=== PATIENT | male | born 1995 | race Caucasian/White ===

== ENCOUNTER 2020-01-15 14:44 | Emergency (ER) | payer OTHER, SELFPAY ==
[2020-01-15 14:51] VITALS: BP 134/69; PULSE 129; RESP 16; TEMP 36.9; O2SAT 100; BMI 22.8
[2020-01-15 15:09] VITALS: BP 160/64; PULSE 115; RESP 21; O2SAT 100
--- NOTE | 2020-01-15 15:36 | XRR_ITS ---
PROCEDURE INFORMATION: Exam: XR Chest, 1 View Exam date and time: 01/15/2020 3:37 PM Age: 24 years old Clinical indication: Other: Seizure TECHNIQUE: Imaging protocol: XR of the chest Views: 1 view. COMPARISON: CR Chest 1 [place] [id number] 03/13/2016 8:16 PM FINDINGS: Lungs: Unremarkable. No consolidation. Pleural space: Unremarkable. No pleural effusion. No pneumothorax. Heart/Mediastinum: Unremarkable. No cardiomegaly. Bones/joints: Unremarkable. XR/XR chest 1V portable [id number] IMPRESSION: No acute findings.
[2020-01-15 16:08] LABS: Basophils # 0.1 10^3/uL (0.0-0.1); Basophils % 0.7 %; Eosinophils # 0.3 10^3/uL (0.0-0.8); Eosinophils % 2.3 %; Hematocrit 48.2 % (42.0-52.0); Hemoglobin 14.8 g/dL (11.7-16.6); Lymphocytes % 46.9 %; Mean Corpuscular HGB Conc 30.7 g/dL (30.0-36.0); Mean Corpuscular Volume 97.8 fL (80-94); Mean Platelet Volume 10.1 fL (7.4-10.4); Monocytes # 0.7 10^3/uL (0.2-0.9); Monocytes % 5.8 %; Neutrophils # 5.67 10^3/uL (1.8-7.7); Neutrophils % 44.1 %; Nucleated Red Blood Cells % 0 %; Platelet Count 380 10^3/cmm (130-400); Red Blood Count 4.93 10^6/uL (4.1-5.3); Red Cell Distribution Width 13.2 % (12.1-15.1); White Blood Count 12.8 10^3/uL (4.0-10.0)
[2020-01-15 16:31] LABS: Alanine Aminotransferase 41 U/L (0-41); Albumin Level 5.4 g/dL (3.5-5.2); Alkaline Phosphatase 70 IU/L (40-130); Anion Gap 36.5 (5-19); Aspartate Amino Transferase 41 U/L (0-40); Blood Urea Nitrogen 15 mg/dL (6-20); C Reactive Protein 0.3 mg/L (0.0-4.9); Calcium 10.2 mg/dL (8.5-10.5); Carbon Dioxide 13 mmol/L (22-29); Chloride 96 mmol/L (98-107); Globulin 3.1 g/dL (1.3-4.6); Glomerular Filtration Rate 63.4 mL/min (90-130); Glucose 138 mg/dL (65-115); Lipase 42 U/L (13-60); Osmolality Calculated 297 mOsm/kg (285-295); Potassium 3.5 mmol/L (3.5-5.1); Sodium 142 mmol/L (136-145); Thyroid Stimulating Hormone 0.87 uIU/mL (0.27-4.20); Total Bilirubin 0.2 mg/dL (0.15-1.2); Total Protein 8.5 g/dL (6.6-8.7)
[2020-01-15 16:40] LABS: Alcohol Level < 10 mg/dL (0-10)
[2020-01-15 16:41] LABS: Creatine Phosphokinase 975 U/L (39-308)
[2020-01-15 16:50] LABS: Slide Review Slide Review Perform
[2020-01-15 17:15] VITALS: BP 100/63; PULSE 87; RESP 18; O2SAT 99
[2020-01-15] MEDS: sodium chloride 0.9% 1,000 ML 999 ML IV (17:18)
[2020-01-15 17:36] LABS: Urine Appearance Clear (CLEAR); Urine Color Yellow (Yellow); pH Urine 7 (5-7)
[2020-01-15 17:37] LABS: Add Urine Microscopic? YES; Bilirubin Urine Neg (Negative); Blood Urine Neg (Negative); Glucose Urine UA Norm (Normal); Ketones Urine 1+ (Negative); Leukocyte Esterase Urine Negative (Negative); Nitrate Urine Negative (Negative); Protein Urine Trace (Negative); Urobilinogen Urine Norm (Negative)
[2020-01-15 17:44] LABS: Amphetamines Screen Urine Negative (Negative); Barbiturates Screen Urine Negative (Negative); Benzodiazepines Screen Urine Negative (Negative); Cocaine Screen Urine Negative (Negative); Opiate Screen Urine Negative (Negative); PCP Screen Urine Negative (Negative); THC Screen Urine Negative (Negative)
[2020-01-15 17:49] LABS: Lactate (Lactic Acid level) 1.2 mmol/L (0.5-2.2)
[2020-01-15 17:55] LABS: Hyaline Casts Urine 0-4 /lpf; Mucus Urine TRACE /hpf
[2020-01-15 17:56] LABS: Add Urine Culture? No
[2020-01-15 18:19] VITALS: BP 120/67; PULSE 80; RESP 20; O2SAT 99
[2020-01-15 18:32] LABS: ABG PCO2 38.9 mmHg (35-45); Base Excess ABG -0.4 mmol/L (-2.0-2.0); Blood Gas Allen Test Pos; Blood Gas Operator Identificat ED; Blood Gas Sample Site Radial, right; Blood Gas Sample Type Arterial; HCO3 ABG 24.3 mmol/L (22-26); Oxygen Device ROOM AIR; PO2 ABG 80.9 mmHg (80.0-100.0)
[2020-01-15 18:55] VITALS: BP 117/65; PULSE 87; RESP 19; O2SAT 100
--- NOTE | 2020-01-15 19:15 | ED_ITS ---
HPI - Seizure General: Chief Complaint: Seizure Stated Complaint: Seizure Activity Time Seen by Provider: 01/15/20 14:49 Source: patient Mode of arrival: EMS Limitations: no limitations History of Present Illness: HPI Narrative: The patient is a 24-year-old male with a history of seizures who has not been compliant with his antiseizure medication. He says he was prescribed antiepileptic medications many years ago but has not been taking the medications. Today he says he had a seizure. His friend noted that he had the seizure and lasted about 45 seconds and he became post ictal after the seizure. He denies any illness prior to the seizure, no fever recently, no cough, no chest pain, no difficulty breathing. Later during his visit he admitted to taking creatinine and other supplements for working out. MD complaint: seizure Description of Episode: tonic-clonic movement Duration of episode: 45 -: second(s) Witnessed: Yes - by Bystander (friend) Trauma: No Seizure History: Yes Place: Home Associated symptoms: Deny chest pain, chills, confusion, cough, diaphoresis, fever(s), anorexia, malaise, rash, short of breath, syncope or weakness Treatments prior to arrival: none Review of Systems General: Reports: 10 or more systems reviewed and unremarkable except in HPI and below Const: Denies: fever(s), chills, malaise or diaphoresis Eyes: Denies: change in vision or blurry vision ENMT: Denies: throat pain, enlarged tonsils, odynophagia, hoarseness, mouth pain or swelling of lips/tongue Card: Denies: chest pain or syncope Resp: Denies: dyspnea, productive cough or non-productive cough GI: Denies: abdominal pain, nausea or vomiting : Denies: flank pain, dysuria, urinary frequency, urinary urgency or urinary hesitancy Musc: Denies: neck pain, back pain or extremity swelling Skin/Breast: Denies: rash, pruritus or erythema Neuro: Denies: confusion Endo: Denies: polyuria, polydipsia or tired all the time PFSH ED PFSH: Social History Smoking and tobacco status: current every day smoker smokeless tobacco Physical Exam Const: COMMON NORMALS: no acute distress, average body habitus, patient oriented x3, no limitations, healthy appearing, alert and well nourished HENMT: COMMON NORMALS: normocephalic, atraumatic and moist oral mucous membranes HEAD & SCALP: normocephalic and atraumatic Eye: COMMON NORMALS: Equal, round and reactive pupils present, EOMs intact bilaterally, conjunctivae normal and no scleral icterus CONJUNCTIVA: Yes conjunctivae normal PUPIL: Yes Equal, round and reactive pupils present Neck/C-Spine: COMMON NORMALS: full ROM, supple, no meningeal signs, no JVD and No carotid bruits Resp: COMMON NORMALS: normal respiratory effort, No retractions, No use of accessory muscles, clear to auscultation bilaterally and percussion normal AUSCULTATION: clear to auscultation bilaterally PERCUSSION: percussion normal Cardio: COMMON NORMALS: no JVD, regular rhythm, S1 normal heart sound present, S2 normal heart sound present, No gallops present (Cardio), No clicks present (Cardio), No murmurs present (Cardio), No rub (Cardio) and Peripheral pulses 2+ throughout RATE: tachycardic RHYTHM: regular rhythm HEART SOUNDS: S1 normal heart sound present and S2 normal heart sound present PERIPHERAL PULSES: Peripheral pulses 2+ throughout GI: COMMON NORMALS: Normal to inspection, nondistended, normoactive bowel sounds present, Soft to palpation, non-tender, No hepatosplenomegaly present, no masses and no bruits PALPATION: Yes Soft to palpation and Yes No hepatosplenomegaly present Extremity: COMMON NORMALS: normal to inspection, full ROM, capillary refill normal, no calf tenderness and no pedal edema Neuro: COMMON NORMALS: patient oriented x3 SENSORIUM/ORIENTATION: Yes alert MENINGEAL SIGNS: Yes no meningeal signs Skin: COMMON NORMALS: no rashes or lesions noted, no wounds, turgor normal, no jaundice, no petechiae and no mottling GENERAL SKIN EXAM: no rashes or lesions noted and turgor normal Course Reevaluation(s): Reevaluation #1: Discussed his lab and imaging findings with him. Negative for acute findings. Days here now and she said that he has never been on antiepileptics because they did not want him to take it. They feel that if he takes the medication he can get into the and there is some minor restrictions on him so he has never started the medication. Mother wants him to stop the creatinine and other supplements that he is taking on watch to see if he does not get any more seizures. Advised that he will probably benefit from antiepileptics, however if he continues to have seizures he will definitely need antiepileptics. They voiced understanding and are in agreement with the plan. Time: 19:30 Vital Signs: Vital signs: Vital Signs Temperature 98.4 F 01/15/20 14:51 Pulse Rate 90 01/15/20 19:44 Respiratory Rate 19 H 01/15/20 18:55 Blood Pressure 113/65 01/15/20 19:44 Pulse Oximetry 97 01/15/20 19:44 MDM - Seizure MDM Narrative: Medical decision making narrative: 24-year-old male with a prior history of seizures presents to the emergency department following a seizure today. The patient has apparently never started his antiepileptic that he had been prescribed in the past because he is worried about the consequences of being on antiepileptics. He has been taking supplements that he is using for working out and the patient and his mother believe that this may be responsible for his seizure today. He will stop taking the supplements and see if he does not have any more seizures. One of the supplements include creatinine. His heart rate came back down to normal prior to discharge. He is discharged home with no new orders but advised to start antiepileptics if he has recurrent seizures. Differential Diagnosis: Seizure Differential Diagnosis: Likely intractable seizure disorder, generalized seizure, epileptic seizure and status epilepticus Medical Records: Attestation: I reviewed the patient's medical records. Lab Data: Attestation: I reviewed the patient's lab results. Labs: Lab Results 01/15/20 01/15/20 01/15/20 Range/Units 14:55 14:55 16:30 WBC 12.8 H (4.0-10.0) 10^3/ uL RBC 4.93 (4.1-5.3) 10^6/u L Hgb 14.8 (11.7-16.6) g/dL Hct 48.2 (42.0-52.0) % MCV 97.8 H (80-94) fL MCH 30.0 (28.0-34.0) pg MCHC 30.7 (30.0-36.0) g/dL RDW 13.2 (12.1-15.1) % Plt Count 380 (130-400) 10^3/c mm MPV 10.1 (7.4-10.4) fL Neut % (Auto) 44.1 % Lymph % (Auto) 46.9 % Cascade % (Auto) 5.8 % Eos % (Auto) 2.3 % Baso % (Auto) 0.7 % Neut # (Auto) 5.67 (1.8-7.7) 10^3/u L Lymph # (Auto) 6.0 H (0.8-4.8) 10^3/u L Cascade # (Auto) 0.7 (0.2-0.9) 10^3/u L Eos # (Auto) 0.3 (0.0-0.8) 10^3/u L Baso # (Auto) 0.1 (0.0-0.1) 10^3/u L Nucleated RBC % (a uto) 0 % Nucleated RBCs # 0.0 /100WBC Specimen Type Sample Site ABG pH (7.35-7.45) ABG pCO2 (35-45) mmHg ABG pO2 (80.0-100.0) mmH g ABG HCO3 (22-26) mmol/L ABG Base Excess (-2.0-2.0) mmol/ L Erasmo Test Hematocrit (42-52) % O2 Delivery Device FiO2 % Solar [employer] System Installer Helper ID Sodium 142 (136-145) mmol/L Potassium 3.5 (3.5-5.1) mmol/L Chloride 96 L (98-107) mmol/L Carbon Dioxide 13 L (22-29) mmol/L Anion Gap 36.5 H (5-19) BUN 15 (6-20) mg/dL Creatinine 1.4 H (0.7-1.2) mg/dL GFR Calculation 63.4 L (90-130) mL/min Glucose 138 H (65-115) mg/dL Calculated Osmolal ity 297 H (285-295) mOsm/k g Lactate (0.5-2.2) mmol/L Calcium 10.2 (8.5-10.5) mg/dL Total Bilirubin 0.2 (0.15-1.2) mg/dL AST 41 H (0-40) U/L ALT 41 (0-41) U/L Alkaline Phosphata se 70 (40-130) IU/L Creatine Kinase 975 H* (39-308) U/L C-Reactive Protein 0.3 (0.0-4.9) mg/L Total Protein 8.5 (6.6-8.7) g/dL Albumin 5.4 H (3.5-5.2) g/dL Globulin 3.1 (1.3-4.6) g/dL Lipase 42 (13-60) U/L TSH 0.87 (0.27-4.20) uIU/ mL Urine Color (Yellow) Urine Appearance (CLEAR) Urine pH (5-7) Ur Specific Gravit y (1.005-1.030) Urine Protein (Negative) Urine Glucose (UA) (Normal) Urine Ketones (Negative) Urine Blood (Negative) Urine Nitrate (Negative) Urine Bilirubin (Negative) Urine Urobilinogen (Negative) mg/dL Ur Leukocyte Niki ase (Negative) Urine RBC (0-2) /hpf Urine WBC (0-5) /hpf Ur Squamous Epith Cells (0-5) /hpf Amorphous Sediment Urine Bacteria (NONE) /hpf Hyaline Casts /lpf Urine Mucus /hpf Urine Opiates Scre en Negative (Negative) ng/mL Ur Barbiturates Sc reen Negative (Negative) ng/mL Ur Phencyclidine S crn Negative (Negative) ng/mL Ur Amphetamines Sc reen Negative (Negative) ng/mL U Benzodiazepines Scrn Negative (Negative) ng/mL Urine Cocaine Scre en Negative (Negative) ng/mL U Marijuana (THC) Screen Negative (Negative) ng/mL Ethyl Alcohol < 10 (0-10) mg/dL 01/15/20 01/15/20 01/15/20 Range/Units 16:30 17:20 18:20 WBC (4.0-10.0) 10^3/ uL RBC (4.1-5.3) 10^6/u L Hgb (11.7-16.6) g/dL Hct (42.0-52.0) % MCV (80-94) fL MCH (28.0-34.0) pg MCHC (30.0-36.0) g/dL RDW (12.1-15.1) % Plt Count (130-400) 10^3/c mm MPV (7.4-10.4) fL Neut % (Auto) % Lymph % (Auto) % Cascade % (Auto) % Eos % (Auto) % Baso % (Auto) % Neut # (Auto) (1.8-7.7) 10^3/u L Lymph # (Auto) (0.8-4.8) 10^3/u L Cascade # (Auto) (0.2-0.9) 10^3/u L Eos # (Auto) (0.0-0.8) 10^3/u L Baso # (Auto) (0.0-0.1) 10^3/u L Nucleated RBC % (a uto) % Nucleated RBCs # /100WBC Specimen Type Arterial Sample Site Radial, right ABG pH 7.40 (7.35-7.45) ABG pCO2 38.9 (35-45) mmHg ABG pO2 80.9 (80.0-100.0) mmH g ABG HCO3 24.3 (22-26) mmol/L ABG Base Excess -0.4 (-2.0-2.0) mmol/ L Erasmo Test Pos Hematocrit 42.0 (42-52) % O2 Delivery Device Room air FiO2 21.0 % Solar [employer] System Installer Helper ID Ed Sodium (136-145) mmol/L Potassium (3.5-5.1) mmol/L Chloride (98-107) mmol/L Carbon Dioxide (22-29) mmol/L Anion Gap (5-19) BUN (6-20) mg/dL Creatinine (0.7-1.2) mg/dL GFR Calculation (90-130) mL/min Glucose (65-115) mg/dL Calculated Osmolal ity (285-295) mOsm/k g Lactate 1.2 (0.5-2.2) mmol/L Calcium (8.5-10.5) mg/dL Total Bilirubin (0.15-1.2) mg/dL AST (0-40) U/L ALT (0-41) U/L Alkaline Phosphata se (40-130) IU/L Creatine Kinase (39-308) U/L C-Reactive Protein (0.0-4.9) mg/L Total Protein (6.6-8.7) g/dL Albumin (3.5-5.2) g/dL Globulin (1.3-4.6) g/dL Lipase (13-60) U/L TSH (0.27-4.20) uIU/ mL Urine Color Yellow (Yellow) Urine Appearance Clear (CLEAR) Urine pH 7 (5-7) Ur Specific Gravit y 1.010 (1.005-1.030) Urine Protein Trace (Negative) Urine Glucose (UA) Norm (Normal) Urine Ketones 1+ H (Negative) Urine Blood Neg (Negative) Urine Nitrate Negative (Negative) Urine Bilirubin Neg (Negative) Urine Urobilinogen Norm (Negative) mg/dL Ur Leukocyte Niki ase Negative (Negative) Urine RBC None (0-2) /hpf Urine WBC None (0-5) /hpf Ur Squamous Epith Cells None (0-5) /hpf Amorphous Sediment Not Reportable Urine Bacteria None (NONE) /hpf Hyaline Casts 0-4 H /lpf Urine Mucus Trace /hpf Urine Opiates Scre en (Negative) ng/mL Ur Barbiturates Sc reen (Negative) ng/mL Ur Phencyclidine S crn (Negative) ng/mL Ur Amphetamines Sc reen (Negative) ng/mL U Benzodiazepines Scrn (Negative) ng/mL Urine Cocaine Scre en (Negative) ng/mL U Marijuana (THC) Screen (Negative) ng/mL Ethyl Alcohol (0-10) mg/dL Imaging Data^: CXR: Attestation: I personally reviewed and interpreted this imaging study as follows: Radiologist's impression: [address] [address] XRay Report Signed Patient: Jeffery Sebastian SUnkurt #: [id number] : 1995Acct#:[id number] Age/Sex: 24 / MADM Date: 01/15/20 Loc: ERRoom/Bed: Attending Dr: Ordering Provider/Ordering MD: Ritu Negron MD, [facility] [place] Date of Service: 01/15/20 Procedure(s): XR chest 1V portable [id number] Accession Number(s): [id number] Report Number: [id number] PROCEDURE INFORMATION: Exam: XR Chest, 1 View Exam date and time: 01/15/2020 3:37 PM Age: 24 years old Clinical indication: Other: Seizure TECHNIQUE: Imaging protocol: XR of the chest Views: 1 view. COMPARISON: CR Chest 1 [place] [id number] 03/13/2016 8:16 PM FINDINGS: Lungs: Unremarkable. No consolidation. Pleural space: Unremarkable. No pleural effusion. No pneumothorax. Heart/Mediastinum: Unremarkable. No cardiomegaly. Bones/joints: Unremarkable. XR/XR chest 1V portable [id number] IMPRESSION: No acute findings. Dictated By:Yesica Orozco MD Signed By:Yesica Orozco MDSigned Date/Time:01/15/201703 DD/ 02 EKG Data^: EKG 1: Attestation: I personally reviewed and interpreted this EKG as follows: EKG interpretation date: 01/15/20 EKG interpretation time: 14:58 Prior EKG tracings: not available for review Interpretation: Sinus tachycardia. Heart rate 129 bpm. Q waves in [address] changes. Discharge Plan Discharge Patient Disposition: Home Clinical Impression: Epileptic seizure Qualifiers: Epilepsy type: unspecified Intractability: not intractable Status epilepticus: without status epilepticus Qualified Code(s): G40.909 - Epilepsy, unspecified, not intractable, without status epilepticus Condition: Stable Prescriptions: Continued cyclobenzaprine 10 mg tablet 10 mg PO BID PRN (Reason: muscle spasm) Qty: 8 RF: 0 naproxen 500 mg tablet 500 mg PO BID Qty: 14 RF: 0 Discharge Orders: Discharge Order (Routine); Ordered 01/15/20 Ordered By: Ritu Negron Referrals: Marcelino Shields MD [Primary Care Provider] - 1-3 days Discharge Diet: Usual diet Discharge Activity: Increase activity as tolerated Patient Instructions: Epilepsy (ED) Activity Restrictions/Additional Instructions: Return for any new or worsening symptoms. Follow-up with your primary care provider within 3 days. If you have another seizure you definitely need to start on the seizure medicines that were initially prescribed to you. He will benefit from stopping the supplements that you are taking as this may be contributing to your seizures. Drink plenty of fluids to keep well-hydrated Coding Level of Care Code ED Metal Dealer for Chg Fwd Exam Comprehensive
[2020-01-15 19:44] VITALS: BP 113/65; PULSE 90; O2SAT 97
== END 2020-01-15 19:44 | disposition home or self-care (01) ==
PROVIDERS: Emergency Provider Family Medicine; PCP Family Medicine
DX: G40.909 Epilepsy, unspecified, not intractable, without status epilepticus (principal); F17.210 Nicotine dependence, cigarettes, uncomplicated
CPT/HCPCS: 12345; 36600; 71045; 80053; 80306; 80307; 81001; 82550; 82803; 83605; 83690; 84443; 85025; 86140; 96360; 99283; J7030

== ENCOUNTER 2021-03-11 01:28 | Emergency (ER) | payer OTHER, SELFPAY ==
[2021-03-11 01:58] VITALS: BP 125/74; PULSE 72; RESP 18; TEMP 36.3; O2SAT 99; BMI 23.6
--- NOTE | 2021-03-11 02:33 | W.ED.PSYCHS ---
Documented by User: DOREEN Arevalo 03/11/21 17:32 HPI - Psych General: Chief Complaint: Psychiatric Symptoms Stated Complaint: SI Time Seen by Provider: 03/11/21 02:03 History of Present Illness: HPI Narrative: Patient is a 25-year-old male comes to the ED with SI. He was brought in by EMS. Patient says he called EMS because he has been out of his meds for approximately 6 days and is having some suicidal thoughts tonight. He also says he has been drinking alcohol the night to make him feel better. Patient takes venlafaxine for his depression and anxiety he says it works well for him. He ran out of his medication. Patient is currently prescribed 1 tab daily of venlafaxine 225 mg ER tablets. he says that he takes double the prescribed dose, which caused him to run out of medication early. Patient reports that this medication helps him a lot with his anxiety and depression. Since being out of medication he ports been more irritable and vela. He reports only having thoughts of SI this weekend because his and child were out of town visiting some family. They just got back into town later tonight and patient says he is not suicidal now that they are back in town. Patient says he does not do well when he is alone, especially when not taking his venlafaxine. Denies any suicidal plan in place. Patient says he does not want to be admitted into the psych unit would like to get a refill on his meds. Denies any HI, auditory or visual hallucinations. Associated symptoms: Reports depression and suicidal ideation; Deny auditory hallucinations, visual hallucinations or delusions Review of Systems Const: Denies: fever(s), chills or fatigue Eyes: Denies: change in vision or eye discomfort ENMT: Denies: throat pain, odynophagia, nasal discharge or nasal congestion Card: Denies: chest pain, palpitations, edema, swelling of feet/ankles, dyspnea on exertion or orthopnea Resp: Denies: dyspnea, productive cough or non-productive cough GI: Denies: abdominal pain, nausea, vomiting, diarrhea, constipation or hematochezia : Denies: flank pain, difficulty urinating, dysuria or hematuria Musc: Denies: neck pain, back pain or extremity swelling Skin/Breast: Denies: rash or new lesions Neuro: Denies: headache(s), numbness in extremities or weakness in extremities Psych: Reports: anxiety, depression, mood swings, irritability and suicidal ideation; Denies: visual hallucinations or auditory hallucinations PFSH ED PFSH: Social History Smoking and tobacco status: current every day smoker smokeless tobacco Physical Exam Const: COMMON NORMALS: patient oriented x3 and alert GENERAL APPEARANCE: cooperative and odor of alcohol detected HENMT: COMMON NORMALS: normocephalic HEAD & SCALP: normocephalic MOUTH: Normal oral and palatal mucosa present THROAT: posterior oropharynx normal and uvula midline Neck/C-Spine: COMMON NORMALS: supple GENERAL: Yes normal visual inspection Resp: COMMON NORMALS: normal respiratory effort, No retractions, No use of accessory muscles and clear to auscultation bilaterally AUSCULTATION: clear to auscultation bilaterally Cardio: COMMON NORMALS: regular rate, regular rhythm, S1 normal heart sound present, S2 normal heart sound present, No gallops present (Cardio), No clicks present (Cardio), No murmurs present (Cardio) and Peripheral pulses 2+ throughout RATE: regular rate RHYTHM: regular rhythm HEART SOUNDS: S1 normal heart sound present and S2 normal heart sound present PERIPHERAL PULSES: Peripheral pulses 2+ throughout GI: COMMON NORMALS: Normal to inspection, nondistended, normoactive bowel sounds present, Soft to palpation, non-tender and no masses PALPATION: Yes Soft to palpation : COMMON NORMALS: Yes no CVA tenderness BLADDER/KIDNEY EXAM: Yes no CVA tenderness Back/Pelvis: COMMON NORMALS: no CVA tenderness Extremity: COMMON NORMALS: normal to inspection Neuro: COMMON NORMALS: patient oriented x3 and moves all extremities SENSORIUM/ORIENTATION: Yes alert Psych: COMMON NORMALS: mental status grossly normal, Normal thought process present and speech normal ATTITUDE: Yes calm ACTIVITY/MOTOR BEHAVIOR: Yes appropriate eye contact SPEECH: Yes normal speech MOOD & AFFECT: Yes tearful THOUGHT PROCESS: Normal thought process present THOUGHT CONTENT: Yes Suicidality present (only when he is alone and family is away.), No Homicidality present, No delusions and No Hallucination(s) present ATTENTION/CONCENTRATION: Yes attention grossly intact and Yes concentration grossly intact MEMORY/COGNITION: Yes memory grossly intact and Yes cognition grossly intact INSIGHT: Fair insight present (Psych) JUDGEMENT: Fair judgement present (Psych) Skin: GENERAL SKIN EXAM: dry skin Course Consultations: Consultation #1: I contacted Dr. Stephens to discuss patient case and how he does not want to be admitted to the ED. Patient seems in fairly clear state of mind and says he is not currently suicidal because family is back in town. Dr. Stephens said he will call back in and do a televisit with patient and then make plan for discharge or admission. Time: 02:51 Vital Signs: Vital signs: Vital Signs Temperature 98.6 F 03/11/21 06:00 Pulse Rate 78 03/11/21 09:12 Respiratory Rate 16 03/11/21 09:12 Blood Pressure 108/50 03/11/21 06:00 Pulse Oximetry 99 03/11/21 09:12 MDM - Psych Lab Data Attestation: I reviewed the patient's lab results. Result diagrams: 03/11/21 03:15 03/11/21 03:15 Labs: Lab Results 03/11/21 03/11/21 03/11/21 02:54 02:54 03:15 WBC 7.3 10^3/uL 10^3/uL (4.0-10.0) RBC 4.53 10^6/uL 10^6/uL (4.1-5.3) Hgb 14.1 g/dL g/dL (11.7-16.6) Hct 40.7 % L % (42.0-52.0) MCV 89.8 fl fl (80-94) MCH 31.1 pg pg (28.0-34.0) MCHC 34.6 g/dL g/dL (30.0-36.0) RDW 12.7 % % (12.1-15.1) Plt Count 245 10^3/cmm 10^3/cmm (130-400) MPV 8.9 fL fL (7.4-10.4) Neut % (Auto) 49.2 % % Lymph % (Auto) 41.5 % % [place] % (Auto) 5.7 % % Eos % (Auto) 2.2 % % Baso % (Auto) 1.0 % % Neut # (Auto) 3.60 10^3/uL 10^3/uL (1.8-7.7) Lymph # (Auto) 3.0 10^3/uL 10^3/uL (0.8-4.8) [place] # (Auto) 0.4 10^3/uL 10^3/uL (0.2-0.9) Eos # (Auto) 0.2 10^3/uL 10^3/uL (0.0-0.8) Baso # (Auto) 0.1 10^3/uL 10^3/uL (0.0-0.1) Nucleated RBC % (auto) 0 % % Nucleated RBCs # 0.0 /100WBC /100WBC Sodium Potassium Chloride Carbon Dioxide Anion Gap BUN Creatinine GFR Calculation Glucose Calculated Osmolality Calcium Total Bilirubin AST ALT Alkaline Phosphatase Total Protein Albumin Globulin Urine Color Straw (Yellow) Urine Appearance Clear (CLEAR) Urine pH 6 (5-7) Ur Specific [place] 1.010 (1.005-1.030) Urine Protein Neg (Negative) Urine Glucose (UA) Norm (Normal) Urine Ketones Negative (Negative) Urine Blood Neg (Negative) Urine Nitrate Negative (Negative) Urine Bilirubin Neg (Negative) Urine Urobilinogen Norm mg/dL mg/dL (Negative) Ur Leukocyte Esterase Negative (Negative) Salicylates Urine Opiates Screen Negative ng/mL ng/mL (Negative) Acetaminophen Ur Barbiturates Screen Negative ng/mL ng/mL (Negative) Ur Phencyclidine Scrn Negative ng/mL ng/mL (Negative) Ur Amphetamines Screen Negative ng/mL ng/mL (Negative) U Benzodiazepines Scrn Negative ng/mL ng/mL (Negative) Urine Cocaine Screen Negative ng/mL ng/mL (Negative) U Marijuana (THC) Screen Positive ng/mL H ng/mL (Negative) Ethyl Alcohol 03/11/21 03:15 WBC RBC Hgb Hct MCV MCH MCHC RDW Plt Count MPV Neut % (Auto) Lymph % (Auto) [place] % (Auto) Eos % (Auto) Baso % (Auto) Neut # (Auto) Lymph # (Auto) [place] # (Auto) Eos # (Auto) Baso # (Auto) Nucleated RBC % (auto) Nucleated RBCs # Sodium 142 mmol/L mmol/L (136-145) Potassium 3.6 mmol/L mmol/L (3.5-5.1) Chloride 106 mmol/L mmol/L (98-107) Carbon Dioxide 21 mmol/L L mmol/L (22-29) Anion Gap 18.6 (5-19) BUN 11 mg/dL mg/dL (6-20) Creatinine 0.7 mg/dL mg/dL (0.7-1.2) GFR Calculation 139.8 mL/min H mL/min (90-130) Glucose 83 mg/dL mg/dL (65-115) Calculated Osmolality 293 mOsm/kg mOsm/kg (285-295) Calcium 9.6 mg/dL mg/dL (8.5-10.5) Total Bilirubin 0.2 mg/dL mg/dL (0.15-1.2) AST 18 U/L U/L (0-40) ALT 13 U/L U/L (0-41) Alkaline Phosphatase 47 IU/L IU/L (40-130) Total Protein 7.0 g/dL g/dL (6.6-8.7) Albumin 4.5 g/dL g/dL (3.5-5.2) Globulin 2.5 g/dL g/dL (1.3-4.6) Urine Color Urine Appearance Urine pH Ur Specific [place] Urine Protein Urine Glucose (UA) Urine Ketones Urine Blood Urine Nitrate Urine Bilirubin Urine Urobilinogen Ur Leukocyte Esterase Salicylates < 0.3 mg/dL L mg/dL (3-10) Urine Opiates Screen Acetaminophen < 5.0 ug/mL L ug/mL (10-30) Ur Barbiturates Screen Ur Phencyclidine Scrn Ur Amphetamines Screen U Benzodiazepines Scrn Urine Cocaine Screen U Marijuana (THC) Screen Ethyl Alcohol 67 mg/dL H mg/dL (0-10) Discharge Plan Discharge Patient Disposition: Home Clinical Impression: Depression Condition: Stable Prescriptions: New Effexor XR 150 mg capsule,extended release 24hr 150 mg PO DAILY Qty: 30 0RF No Action cyclobenzaprine 10 mg tablet 10 mg PO BID PRN (Reason: muscle spasm) Qty: 8 0RF naproxen 500 mg tablet 500 mg PO BID Qty: 14 0RF Discharge Orders: Discharge ED (Routine); Ordered 03/11/21 Ordered By: Carlitos Carmona Referrals: Marcelino Shields MD [Primary Care Provider] - Discharge Diet: Usual diet Discharge Activity: Resume usual activity Patient Instructions: Depression (ED) Activity Restrictions/Additional Instructions: Return immediately to the ER for thoughts or wishes to harm your self or anyone else. market risk manager will make arrangements for you to have follow-up with behavioral health care. Coding Level of Care Code ED Vascular Physician for Chg Fwd Exam Comprehensive Documented by User: Ritesh Haro DO 03/12/21 22:29 HPI - Psych General: Chief Complaint: Psychiatric Symptoms Stated Complaint: SI Time Seen by Provider: 03/11/21 02:03 PFSH ED PFSH: Social History Smoking and tobacco status: current every day smoker smokeless tobacco Course Vital Signs: Vital signs: Vital Signs Temperature 98.6 F 03/11/21 06:00 Pulse Rate 78 03/11/21 09:12 Respiratory Rate 16 03/11/21 09:12 Blood Pressure 108/50 03/11/21 06:00 Pulse Oximetry 99 03/11/21 09:12 MDM - Psych MDM Narrative Medical decision making narrative: Received in checkout from Mr. Travis PA-C. I agree with his history, evaluation, and treatment. Dr. Stephens will call to consult on this patient via telemedicine in a bit. Discharge planning will be completed after his consultation. Lab Data Result diagrams: 03/11/21 03:15 03/11/21 03:15 Labs: Lab Results 03/11/21 03/11/21 03/11/21 02:54 02:54 03:15 WBC 7.3 10^3/uL 10^3/uL (4.0-10.0) RBC 4.53 10^6/uL 10^6/uL (4.1-5.3) Hgb 14.1 g/dL g/dL (11.7-16.6) Hct 40.7 % L % (42.0-52.0) MCV 89.8 fl fl (80-94) MCH 31.1 pg pg (28.0-34.0) MCHC 34.6 g/dL g/dL (30.0-36.0) RDW 12.7 % % (12.1-15.1) Plt Count 245 10^3/cmm 10^3/cmm (130-400) MPV 8.9 fL fL (7.4-10.4) Neut % (Auto) 49.2 % % Lymph % (Auto) 41.5 % % [place] % (Auto) 5.7 % % Eos % (Auto) 2.2 % % Baso % (Auto) 1.0 % % Neut # (Auto) 3.60 10^3/uL 10^3/uL (1.8-7.7) Lymph # (Auto) 3.0 10^3/uL 10^3/uL (0.8-4.8) [place] # (Auto) 0.4 10^3/uL 10^3/uL (0.2-0.9) Eos # (Auto) 0.2 10^3/uL 10^3/uL (0.0-0.8) Baso # (Auto) 0.1 10^3/uL 10^3/uL (0.0-0.1) Nucleated RBC % (auto) 0 % % Nucleated RBCs # 0.0 /100WBC /100WBC Sodium Potassium Chloride Carbon Dioxide Anion Gap BUN Creatinine GFR Calculation Glucose Calculated Osmolality Calcium Total Bilirubin AST ALT Alkaline Phosphatase Total Protein Albumin Globulin Urine Color Straw (Yellow) Urine Appearance Clear (CLEAR) Urine pH 6 (5-7) Ur Specific [place] 1.010 (1.005-1.030) Urine Protein Neg (Negative) Urine Glucose (UA) Norm (Normal) Urine Ketones Negative (Negative) Urine Blood Neg (Negative) Urine Nitrate Negative (Negative) Urine Bilirubin Neg (Negative) Urine Urobilinogen Norm mg/dL mg/dL (Negative) Ur Leukocyte Esterase Negative (Negative) Salicylates Urine Opiates Screen Negative ng/mL ng/mL (Negative) Acetaminophen Ur Barbiturates Screen Negative ng/mL ng/mL (Negative) Ur Phencyclidine Scrn Negative ng/mL ng/mL (Negative) Ur Amphetamines Screen Negative ng/mL ng/mL (Negative) U Benzodiazepines Scrn Negative ng/mL ng/mL (Negative) Urine Cocaine Screen Negative ng/mL ng/mL (Negative) U Marijuana (THC) Screen Positive ng/mL H ng/mL (Negative) Ethyl Alcohol 01/24/22 03:15 WBC RBC Hgb Hct MCV MCH MCHC RDW Plt Count MPV Neut % (Auto) Lymph % (Auto) [place] % (Auto) Eos % (Auto) Baso % (Auto) Neut # (Auto) Lymph # (Auto) [place] # (Auto) Eos # (Auto) Baso # (Auto) Nucleated RBC % (auto) Nucleated RBCs # Sodium 142 mmol/L mmol/L (136-145) Potassium 3.6 mmol/L mmol/L (3.5-5.1) Chloride 106 mmol/L mmol/L (98-107) Carbon Dioxide 21 mmol/L L mmol/L (22-29) Anion Gap 18.6 (5-19) BUN 11 mg/dL mg/dL (6-20) Creatinine 0.7 mg/dL mg/dL (0.7-1.2) GFR Calculation 139.8 mL/min H mL/min (90-130) Glucose 83 mg/dL mg/dL (65-115) Calculated Osmolality 293 mOsm/kg mOsm/kg (285-295) Calcium 9.6 mg/dL mg/dL (8.5-10.5) Total Bilirubin 0.2 mg/dL mg/dL (0.15-1.2) AST 18 U/L U/L (0-40) ALT 13 U/L U/L (0-41) Alkaline Phosphatase 47 IU/L IU/L (40-130) Total Protein 7.0 g/dL g/dL (6.6-8.7) Albumin 4.5 g/dL g/dL (3.5-5.2) Globulin 2.5 g/dL g/dL (1.3-4.6) Urine Color Urine Appearance Urine pH Ur Specific [place] Urine Protein Urine Glucose (UA) Urine Ketones Urine Blood Urine Nitrate Urine Bilirubin Urine Urobilinogen Ur Leukocyte Esterase Salicylates < 0.3 mg/dL L mg/dL (3-10) Urine Opiates Screen Acetaminophen < 5.0 ug/mL L ug/mL (10-30) Ur Barbiturates Screen Ur Phencyclidine Scrn Ur Amphetamines Screen U Benzodiazepines Scrn Urine Cocaine Screen U Marijuana (THC) Screen Ethyl Alcohol 67 mg/dL H mg/dL (0-10) Discharge Plan Discharge Patient Disposition: Home Clinical Impression: Depression Condition: Stable Prescriptions: New Effexor XR 150 mg capsule,extended release 24hr 150 mg PO DAILY Qty: 30 0RF No Action cyclobenzaprine 10 mg tablet 10 mg PO BID PRN (Reason: muscle spasm) Qty: 8 0RF naproxen 500 mg tablet 500 mg PO BID Qty: 14 0RF Discharge Orders: Discharge ED (Routine); Ordered 03/11/21 Ordered By: Carlitos Carmona Referrals: Marcelino Shields MD [Primary Care Provider] - Discharge Diet: Usual diet Discharge Activity: Resume usual activity Patient Instructions: Depression (ED) Activity Restrictions/Additional Instructions: Return immediately to the ER for thoughts or wishes to harm your self or anyone else. market risk manager will make arrangements for you to have follow-up with behavioral health care. Coding Level of Care Code ED Vascular Physician for Chg Fwd Exam Comprehensive Documented by User: Carlitos Carmona DO 03/11/21 08:27 HPI - Psych General: Chief Complaint: Psychiatric Symptoms Stated Complaint: SI Time Seen by Provider: 03/11/21 02:03 [facility] ED PFSH: Social History Smoking and tobacco status: current every day smoker smokeless tobacco Course Vital Signs: Vital signs: Vital Signs Temperature 98.6 F 03/11/21 06:00 Pulse Rate 78 03/11/21 09:12 Respiratory Rate 16 03/11/21 09:12 Blood Pressure 108/50 03/11/21 06:00 Pulse Oximetry 99 03/11/21 09:12 MDM - Psych MDM Narrative Medical decision making narrative: Care assumed a change of shift Dr. Stephens has seen the patient via telemedicine and feels that the patient is able to go home. He recommended that we refill a prescription for Effexor set him up for outpatient follow-up with [facility]. Also discussed with the family prior to discharge if he has any further problems and need to return to the emergency room with him. Lab Data Result diagrams: 03/11/21 03:15 03/11/21 03:15 Labs: Lab Results 03/11/21 03/11/21 03/11/21 02:54 02:54 03:15 WBC 7.3 10^3/uL 10^3/uL (4.0-10.0) RBC 4.53 10^6/uL 10^6/uL (4.1-5.3) Hgb 14.1 g/dL g/dL (11.7-16.6) Hct 40.7 % L % (42.0-52.0) MCV 89.8 fl fl (80-94) MCH 31.1 pg pg (28.0-34.0) MCHC 34.6 g/dL g/dL (30.0-36.0) RDW 12.7 % % (12.1-15.1) Plt Count 245 10^3/cmm 10^3/cmm (130-400) MPV 8.9 fL fL (7.4-10.4) Neut % (Auto) 49.2 % % Lymph % (Auto) 41.5 % % [place] % (Auto) 5.7 % % Eos % (Auto) 2.2 % % Baso % (Auto) 1.0 % % Neut # (Auto) 3.60 10^3/uL 10^3/uL (1.8-7.7) Lymph # (Auto) 3.0 10^3/uL 10^3/uL (0.8-4.8) [place] # (Auto) 0.4 10^3/uL 10^3/uL (0.2-0.9) Eos # (Auto) 0.2 10^3/uL 10^3/uL (0.0-0.8) Baso # (Auto) 0.1 10^3/uL 10^3/uL (0.0-0.1) Nucleated RBC % (auto) 0 % % Nucleated RBCs # 0.0 /100WBC /100WBC Sodium Potassium Chloride Carbon Dioxide Anion Gap BUN Creatinine GFR Calculation Glucose Calculated Osmolality Calcium Total Bilirubin AST ALT Alkaline Phosphatase Total Protein Albumin Globulin Urine Color Straw (Yellow) Urine Appearance Clear (CLEAR) Urine pH 6 (5-7) Ur Specific [place] 1.010 (1.005-1.030) Urine Protein Neg (Negative) Urine Glucose (UA) Norm (Normal) Urine Ketones Negative (Negative) Urine Blood Neg (Negative) Urine Nitrate Negative (Negative) Urine Bilirubin Neg (Negative) Urine Urobilinogen Norm mg/dL mg/dL (Negative) Ur Leukocyte Esterase Negative (Negative) Salicylates Urine Opiates Screen Negative ng/mL ng/mL (Negative) Acetaminophen Ur Barbiturates Screen Negative ng/mL ng/mL (Negative) Ur Phencyclidine Scrn Negative ng/mL ng/mL (Negative) Ur Amphetamines Screen Negative ng/mL ng/mL (Negative) U Benzodiazepines Scrn Negative ng/mL ng/mL (Negative) Urine Cocaine Screen Negative ng/mL ng/mL (Negative) U Marijuana (THC) Screen Positive ng/mL H ng/mL (Negative) Ethyl Alcohol 03/11/21 03:15 WBC RBC Hgb Hct MCV MCH MCHC RDW Plt Count MPV Neut % (Auto) Lymph % (Auto) [place] % (Auto) Eos % (Auto) Baso % (Auto) Neut # (Auto) Lymph # (Auto) [place] # (Auto) Eos # (Auto) Baso # (Auto) Nucleated RBC % (auto) Nucleated RBCs # Sodium 142 mmol/L mmol/L (136-145) Potassium 3.6 mmol/L mmol/L (3.5-5.1) Chloride 106 mmol/L mmol/L (98-107) Carbon Dioxide 21 mmol/L L mmol/L (22-29) Anion Gap 18.6 (5-19) BUN 11 mg/dL mg/dL (6-20) Creatinine 0.7 mg/dL mg/dL (0.7-1.2) GFR Calculation 139.8 mL/min H mL/min (90-130) Glucose 83 mg/dL mg/dL (65-115) Calculated Osmolality 293 mOsm/kg mOsm/kg (285-295) Calcium 9.6 mg/dL mg/dL (8.5-10.5) Total Bilirubin 0.2 mg/dL mg/dL (0.15-1.2) AST 18 U/L U/L (0-40) ALT 13 U/L U/L (0-41) Alkaline Phosphatase 47 IU/L IU/L (40-130) Total Protein 7.0 g/dL g/dL (6.6-8.7) Albumin 4.5 g/dL g/dL (3.5-5.2) Globulin 2.5 g/dL g/dL (1.3-4.6) Urine Color Urine Appearance Urine pH Ur Specific [place] Urine Protein Urine Glucose (UA) Urine Ketones Urine Blood Urine Nitrate Urine Bilirubin Urine Urobilinogen Ur Leukocyte Esterase Salicylates < 0.3 mg/dL L mg/dL (3-10) Urine Opiates Screen Acetaminophen < 5.0 ug/mL L ug/mL (10-30) Ur Barbiturates Screen Ur Phencyclidine Scrn Ur Amphetamines Screen U Benzodiazepines Scrn Urine Cocaine Screen U Marijuana (THC) Screen Ethyl Alcohol 67 mg/dL H mg/dL (0-10) Discharge Plan Discharge Patient Disposition: Home Clinical Impression: Depression Condition: Stable Prescriptions: New Effexor XR 150 mg capsule,extended release 24hr 150 mg PO DAILY Qty: 30 0RF No Action cyclobenzaprine 10 mg tablet 10 mg PO BID PRN (Reason: muscle spasm) Qty: 8 0RF naproxen 500 mg tablet 500 mg PO BID Qty: 14 0RF Discharge Orders: Discharge ED (Routine); Ordered 03/11/21 Ordered By: Carlitos Carmona Referrals: Marcelino Shields MD [Primary Care Provider] - Discharge Diet: Usual diet Discharge Activity: Resume usual activity Patient Instructions: Depression (ED) Activity Restrictions/Additional Instructions: Return immediately to the ER for thoughts or wishes to harm your self or anyone else. market risk manager will make arrangements for you to have follow-up with behavioral health care. Coding Level of Care Code ED Vascular Physician for [place] Fwd Exam Comprehensive
[2021-03-11 02:58] LABS: Add Urine Microscopic? NO; Charge for UA Resulting for Rev
[2021-03-11 03:03] LABS: Bilirubin Urine Neg (Negative); Blood Urine Neg (Negative); Glucose Urine UA Norm (Normal); Ketones Urine Negative (Negative); Leukocyte Esterase Urine Negative (Negative); Nitrate Urine Negative (Negative); Protein Urine Neg (Negative); Urine Appearance Clear (CLEAR); Urine Color Straw (Yellow); Urobilinogen Urine Norm (Negative); pH Urine 6 (5-7)
[2021-03-11 03:12] LABS: Amphetamines Screen Urine Negative (Negative); Barbiturates Screen Urine Negative (Negative); Benzodiazepines Screen Urine Negative (Negative); Cocaine Screen Urine Negative (Negative); Opiate Screen Urine Negative (Negative); PCP Screen Urine Negative (Negative); THC Screen Urine Positive (Negative)
[2021-03-11 03:21] LABS: Basophils # 0.1 10^3/uL (0.0-0.1); Eosinophils # 0.2 10^3/uL (0.0-0.8); Eosinophils % 2.2 %; Hematocrit 40.7 % (42.0-52.0); Hemoglobin 14.1 g/dL (11.7-16.6); Lymphocytes % 41.5 %; Mean Corpuscular HGB Conc 34.6 g/dL (30.0-36.0); Mean Corpuscular Hemoglobin 31.1 pg (28.0-34.0); Mean Corpuscular Volume 89.8 fl (80-94); Mean Platelet Volume 8.9 fL (7.4-10.4); Monocytes # 0.4 10^3/uL (0.2-0.9); Monocytes % 5.7 %; Neutrophils % 49.2 %; Nucleated Red Blood Cells % 0 %; Platelet Count 245 10^3/cmm (130-400); Red Blood Count 4.53 10^6/uL (4.1-5.3); Red Cell Distribution Width 12.7 % (12.1-15.1); White Blood Count 7.3 10^3/uL (4.0-10.0)
[2021-03-11 03:42] LABS: Alanine Aminotransferase 13 U/L (0-41); Albumin Level 4.5 g/dL (3.5-5.2); Alcohol Level 67 mg/dL (0-10); Alkaline Phosphatase 47 IU/L (40-130); Anion Gap 18.6 (5-19); Aspartate Amino Transferase 18 U/L (0-40); Blood Urea Nitrogen 11 mg/dL (6-20); Calcium 9.6 mg/dL (8.5-10.5); Carbon Dioxide 21 mmol/L (22-29); Chloride 106 mmol/L (98-107); Globulin 2.5 g/dL (1.3-4.6); Glomerular Filtration Rate 139.8 mL/min (90-130); Glucose 83 mg/dL (65-115); Osmolality Calculated 293 mOsm/kg (285-295); Potassium 3.6 mmol/L (3.5-5.1); Sodium 142 mmol/L (136-145); Total Bilirubin 0.2 mg/dL (0.15-1.2)
[2021-03-11 03:43] LABS: Acetaminophen < 5.0 ug/mL (10-30); Salicylate < 0.3 mg/dL (3-10)
[2021-03-11 03:51] VITALS: BP 132/78; PULSE 88; RESP 16; O2SAT 97
[2021-03-11 06:00] VITALS: BP 108/50; PULSE 81; RESP 16; TEMP 37; O2SAT 97
[2021-03-11 09:12] VITALS: PULSE 78; RESP 16; O2SAT 99
--- NOTE | 2021-03-12 12:57 | DCPLANNER ---
natural resource manager had message to speak with patient about services at [facility]. natural resource manager called patient, spoke with his mother, gave her the information to get services started at [facility].
== END 2021-03-11 09:11 | disposition home or self-care (01) ==
PROVIDERS: Physician Assistant; Emergency Provider Family Medicine; PCP Family Medicine
DX: F32.A Depression, unspecified (principal); F17.210 Nicotine dependence, cigarettes, uncomplicated
CPT/HCPCS: 80053; 80306; 80307; 81003; 85025; 99284

== ENCOUNTER 2021-10-09 22:51 | Emergency (ER) | payer SELFPAY ==
--- NOTE | 2021-10-09 22:53 | XRR_ITS ---
PROCEDURE INFORMATION: Exam: XR Right Hand Exam date and time: 10/10/2021 12:10 AM Age: 26 years old Clinical indication: Injury or trauma; Fall; Blunt trauma (contusions or hematomas); Hand; Right; Patient HX: Punched a wall. C/O pain with swelling to dorsal surface across meta carpals. TECHNIQUE: Imaging protocol: Radiologic exam of the Right hand. Views: 3 or more views. COMPARISON: No relevant prior studies available. FINDINGS: Bones/joints: Probable 8 mm displaced fracture fragment posterior to the carpal metacarpal junction. Intra-articular fractures involving the bases of the 4th and/or 5th metacarpals. Soft tissues: Soft tissue swelling over the dorsum of the hand. XR/XR hand RT min 3V* [id number] IMPRESSION: 1. Probable 8 mm displaced fracture fragment posterior to the carpal metacarpal junction. 2. Intra-articular fractures involving the bases of the 4th and/or 5th metacarpals. 3. Soft tissue swelling over the dorsum of the hand.
[2021-10-09 23:09] VITALS: BP 144/80; PULSE 85; RESP 18; TEMP 36.7; O2SAT 97; BMI 21.9
--- NOTE | 2021-10-09 23:36 | W.ED.EXTPRO ---
HPI - Extremity Problem General: Chief complaint: Extremity Injury, Upper Stated complaint: right hand injury Time Seen by Provider: 10/09/21 23:08 Source: patient Mode of arrival: ambulatory Limitations: no limitations History of Present Illness: 26-year-old male states he has been frustrated his girlfriend's been very sick during her states he was upset today and punched a wall he has right hand pain from hitting the wall he denies any other injuries he denies any suicidal or homicidal ideations. Associated symptoms: Deny chest pain, fever(s) or rash Review of Systems Const: Denies: fever(s), chills, body aches or change in appetite Eyes: Denies: blurry vision or eye discomfort ENMT: Denies: throat pain or dental pain Card: Denies: chest pain Resp: Denies: dyspnea GI: Denies: abdominal pain, nausea, vomiting or diarrhea : Denies: dysuria Musc: Reports: extremity pain Skin/Breast: Denies: rash Neuro: Denies: headache(s) Psych: Denies: depression Devyn/Lymph: Denies: easy bruising All/Imm: Denies: urticaria PFS ED PFSH: Medical History (Updated 10/10/21 @ 00:20 by Damien Chun MD) No pertinent past medical history Social History Smoking and tobacco status: current every day smoker smokeless tobacco Physical Exam Const: COMMON NORMALS: no acute distress, patient oriented x3 and healthy appearing HENMT: COMMON NORMALS: normocephalic and atraumatic HEAD & SCALP: normocephalic and atraumatic Eye: COMMON NORMALS: Equal, round and reactive pupils present and EOMs intact bilaterally PUPIL: Yes Equal, round and reactive pupils present Neck/C-Spine: COMMON NORMALS: full ROM and supple Chest: COMMONS NORMALS: normal inspection of the chest and normal palpation of entire chest wall Resp: COMMON NORMALS: normal respiratory effort, No retractions, No use of accessory muscles and clear to auscultation bilaterally AUSCULTATION: clear to auscultation bilaterally Cardio: COMMON NORMALS: regular rate, regular rhythm and No murmurs present (Cardio) RATE: regular rate RHYTHM: regular rhythm GI: COMMON NORMALS: Normal to inspection, nondistended, normoactive bowel sounds present, Soft to palpation, non-tender and no masses PALPATION: Yes Soft to palpation Extremity: COMMON NORMALS: full ROM NARRATIVE EXTREMITY EXAM: tenderness over right hand Neuro: COMMON NORMALS: patient oriented x3, moves all extremities and no focal motor deficits Psych: COMMON NORMALS: mental status grossly normal, Normal thought process present and cooperative THOUGHT PROCESS: Normal thought process present Skin: COMMON NORMALS: no rashes or lesions noted and no wounds GENERAL SKIN EXAM: no rashes or lesions noted Course Vital Signs: Vital signs: Vital Signs Temperature 98.0 F 10/09/21 23:09 Pulse Rate 85 10/09/21 23:09 Respiratory Rate 18 10/09/21 23:09 Blood Pressure 144/80 10/09/21 23:09 Pulse Oximetry 97 10/09/21 23:09 Oxygen Delivery Me thod 10/09/21 23:09 MDM - Extremity (Nontraumatic) Medical Decision Making Patient presents here with a hand injury on the x-ray he appears to have a likely triquetral fracture. We will splint have him follow-up with orthopedics he is to return if worsening he understands agrees to plan. Discharge Plan Discharge Patient Disposition: Home Clinical Impression: Triquetral fracture Qualifiers: Encounter type: initial encounter Fracture type: closed Fracture alignment: nondisplaced Laterality: right Qualified Code(s): S62.114A - Nondisplaced fracture of triquetrum [cuneiform] bone, right wrist, initial encounter for closed fracture Condition: Stable Prescriptions: No Action cyclobenzaprine 10 mg tablet 10 mg PO BID PRN (Reason: muscle spasm) Qty: 8 0RF naproxen 500 mg tablet 500 mg PO BID Qty: 14 0RF Effexor XR 150 mg capsule,extended release 24hr 150 mg PO DAILY Qty: 30 0RF Discharge Orders: Discharge ED (Routine); Ordered 10/10/21 Ordered By: Damien Chun Referrals: Marcelino Shields MD [Primary Care Provider] - Jason Robles DO [Physician] - 1-3 days Discharge Diet: Advance as tolerated Discharge Activity: Resume usual activity Patient Instructions: Wrist Fracture in Adults (ED) Coding Level of Care Code ED General Activities Therapist for g Fwd Exam Comprehensive
--- NOTE | 2021-10-10 12:28 | DCPLANNER ---
Addendum entered by Bette Umanzor 10/18/21 12:46: Patient had a follow up appointment scheduled for 10.14.21 with ortho - patient did attend appointment. Original Note: credit administration manager had message to schedule a follow up appointment for patient with ortho. credit administration manager sent patients information to the front office staff at ortho. Patients information will be printed and reviewed. Clinic will call patient with appointment information.
== END 2021-10-10 00:54 | disposition home or self-care (01) ==
PROVIDERS: Emergency Provider Emergency Medicine; PCP Family Medicine
DX: S62.114A Nondisplaced fracture of triquetrum [cuneiform] bone, right wrist, initial encounter for closed fracture (principal); W22.09XA Striking against other stationary object, initial encounter
CPT/HCPCS: 29125; 73130; 96361; 96374; 99283; 99284

== ENCOUNTER → 2021-10-14 09:24 | Outpatient (BNVA) | payer BC, SELFPAY | PROVIDERS: PCP Family Medicine; Referring Provider Emergency Medicine; Visit Provider Student in an Organized Health Care Education/Training Program | DX: S62.394A Other fracture of fourth metacarpal bone, right hand, initial encounter for closed fracture (principal); S62.396A Other fracture of fifth metacarpal bone, right hand, initial encounter for closed fracture; W22.8XXA Striking against or struck by other objects, initial encounter | CPT/HCPCS: 73110 ==

== ENCOUNTER 2021-10-14 10:51 | Outpatient (CLI) | payer BC, SELFPAY | END 2021-10-14 10:52 | disposition home or self-care (01) | LOC: SPT 10:53 | PROVIDERS: PCP Family Medicine; Visit Provider Student in an Organized Health Care Education/Training Program | DX: Z46.89 Encounter for fitting and adjustment of other specified devices (principal); S62.111D Displaced fracture of triquetrum [cuneiform] bone, right wrist, subsequent encounter for fracture with routine healing; X58.XXXD Exposure to other specified factors, subsequent encounter | CPT/HCPCS: 97760; L3984 ==

== ENCOUNTER 2021-10-16 14:07 | Outpatient (CLI) | payer BC, SELFPAY ==
--- NOTE | 2021-10-16 14:00 | CT_ITS ---
WS: [id number] CT RIGHT WRIST, NONCONTRAST, 3-D. HISTORY: TRIQUETRAL FRACTURE Technique: All CT scans at [facility] use at least one of these dose optimization techniques: automated exposure control; mA and/or kV adjustment per patient size (includes targeted exams where dose is matched to clinical indication); or iterative reconstruction. DLP: 100.38 mGy.cm COMPARISON: Wrist radiographs 10/14/2021 Comminuted fracture with displaced fragments involving the proximal fourth metacarpal. There are mult iple bony fragments surrounding the metacarpal. The largest measures 11 mm and is displaced from the volar surface of the proximal metacarpal. Fragments extend intra-articular. There is also posterior subluxation of the metacarpal with respect to the hamate. Posterior subluxation by 7 mm. Additional posterior subluxation of the fifth metacarpal with adjacent small bony fragments. There is probably a small donor site from the medial most aspect of the fifth metacarpal but majority of the fragments are from the hamate. Posterior subluxation with impaction on the hamate. Markedly comminuted hamate. There are multiple osseous fragments with separation by at least 7 mm. This separation of bony fragments is due to impaction and subluxation of the fifth metacarpal. Fifth metacarpal with overriding hamate. The remaining carpal bones appear intact. No additional fractures are identified. There is a large amount of soft tissue edema around the carpal bones. CT/CT wrist RT wo con* [id number] IMPRESSION: 1. Markedly comminuted fractures involving the proximal fourth metacarpal with bony fragments being displaced. There is also posterior subluxation of the fou rth metacarpal by 7 mm. 2. Posterior subluxation of the fifth metacarpal. Very tiny avulsion fracture suspected along the articular surface of the proximal fifth metacarpal. 3. Markedly comminuted hamate fracture with displacement of osseous fragments. Hamate fractures are being displaced by impaction of the fourth and fifth meta carpals. 4. No triquetral fracture appreciated.
== END 2021-10-16 14:08 | disposition home or self-care (01) ==
LOC: RAD 14:08
PROVIDERS: PCP Family Medicine; Visit Provider Student in an Organized Health Care Education/Training Program
DX: S62.113A Displaced fracture of triquetrum [cuneiform] bone, unspecified wrist, initial encounter for closed fracture (principal); S62.304A Unspecified fracture of fourth metacarpal bone, right hand, initial encounter for closed fracture; S62.141A Displaced fracture of body of hamate [unciform] bone, right wrist, initial encounter for closed fracture; X58.XXXA Exposure to other specified factors, initial encounter
CPT/HCPCS: 73200

== ENCOUNTER 2021-10-18 09:53 | Day surgery (SDC) | payer BC, SELFPAY ==
[2021-10-18] VITALS (10 sets, daily range): BP systolic 116–168; BP diastolic 61–95; PULSE 43–72; RESP 14–18; TEMP 36.1–36.6; O2SAT 99–100; BMI 21.9
--- NOTE | 2021-10-18 | SCC_ITS ---
Procedure done: Right hand fourth and fifth carpometacarpal joint fracture dislocation closed reduction and percutaneous pinning 39 seconds of fluoroscopic guidance, for a cumulative dose of 0.84 mGy, was provided to Dr. Robles by the radiology department. C-arm images of the RIGHT wrist were saved for the patient's permanent record. [facility]
--- NOTE | 2021-10-18 10:36 | P.ANESASSM_ITS ---
Pre-Anesthetic Assessment Height/Weight: Height 1.75 m Weight 67.585 kg Temp Pulse Resp BP Pulse Ox O2 Del Method 97.8 F 57 L 18 116/61 99 10/18/21 10:27 10/18/21 10:27 10/18/21 10:27 10/18/21 10:27 10/18/21 10:27 10/18/21 10:27 Preop Diagnosis: Right fourth and fifth carpometacarpal joint fracture dislocation Operation Date: 10/18/21 11:15 Proposed Procedures p RIGHT FOURTH AND FIFTH CARPOMETACARPAL JOINT CLOSED REDUCTION AND PINNING WITH POSSIBLE OPEN REDUCTION 13234, 66962,S62.308A(Right) - Jason Washington, DO Familial anesthetic complications: None Was Beta Nicole taken within 24 hours: N/A Was Clonidine taken within 24 hours: N/A Last intake: Intake Last Liquid Date 10/17/21 Last Liquid Time 22:00 Last Solid Date 10/17/21 Last Solid Time 15:00 Social Alcohol (past abuse - seizures) and Tobacco marijuana this morning Exam alert, oriented x 3, clear to auscultation bilaterally and regular rate & rhythm Airway Mallampati: Class I Dentition: chipped Neuropsych Seizure (on keppra - no seizure in 1.5 years) Anesthetic Plan ASA status: 2 Anesthesia: General Risk of > 500 ml blood loss (7ml/kg in children): No Medications/Allergies Home Medications Medication Instructions Recorded Confirmed Last Taken Type naproxen 500 mg tablet 500 mg PO BID #14 tabs 11/16/19 10/14/21 Unknown Rx FASTFORM ULNAR GUTTER SPLINT #1 ea 10/14/21 10/14/21 Unknown Rx Allergies Allergy/AdvReac Type Severity Reaction Status Date / Time No Known Allergies Allergy Verified 10/14/21 09:30 [facility] Anesthesia Medical History (Updated 10/18/21 @ 00:01 by ) Closed fracture of 4th metacarpal Closed fracture of 5th metacarpal No pertinent past medical history Social History Smoking and tobacco status: current every day smoker smokeless tobacco Data Anesthesia Cardiac Studies: No Data to Display
[2021-10-18] MEDS: sodium chloride 0.9% 1,000 ML 30 ML IV (10:39)
--- NOTE | 2021-10-18 11:50 | W.PM.OPSUD ---
Surgery/Procedure H&P Update DATE OF PROCEDURE: October 18, 2021 DATE H&P PERFORMED: 10/14/21 CHANGES TO PREVIOUS DOCUMENTATION: None PREOP DIAGNOSIS: Right fourth and fifth carpometacarpal joint fracture dislocation PRIMARY INDICATION FOR PROCEDURE: Right fourth and fifth carpometacarpal joint fracture dislocation PLANNED PROCEDURE: Operation Date: 10/18/21 11:15 Proposed Procedures p RIGHT FOURTH AND FIFTH CARPOMETACARPAL JOINT CLOSED REDUCTION AND PINNING WITH POSSIBLE OPEN REDUCTION 27106, 29388,S62.308A(Right) - Jason Robles DO
[2021-10-18] MEDS: ceFAZolin 2,000 MG in sodium chloride 0.9% (plus) 50 ML 100 MG IV (12:00)
[2021-10-18] MEDS: lidocaine 1% INJ 50 mL 7 ML INJECTION (12:40)
--- NOTE | 2021-10-18 12:49 | P.OP_ITS ---
Brief Operative Note Date of procedure: 10/18/21 Pre-op diagnosis: Right hand fracture dislocation fourth and fifth carpometaca rpal joint Post-op diagnosis: same Procedure Done: Right fourth and fifth carpometacarpal fracture dislocation closed reduction and percutaneous pinning Surgeon: Jason Robles Estimated blood loss (mL): 1 Complications: None Post-op Plan: Patient recover in PACU. Discharge home today. Patient receive appropriate discharge instructions as well as pain medication. Will follow-up in the office in 2 weeks. Condition: stable Disposition: same day Coding Level of Care Code Acute Crawler Tractor Operator for Puma Handley
--- NOTE | 2021-10-18 12:51 | PM.PACU ---
PACU note Narrative: Patient recovering PACU in stable condition. Splint on and in place to the right hand. Still sedated from medication unable to follow commands. Fingers are warm well perfused. Brisk capillary refill less than 2 seconds. Exam: vital signs stable (See above for examination) Disposition: discharged
--- NOTE | 2021-10-18 12:52 | PM.OP ---
Operative Report Date of procedure: October 18, 2021 Pre-op diagnosis: Preop Diagnosis Right fourth and fifth carpometacarpal joint fracture dislocation Post-op diagnosis: Right hand fourth and fifth carpometacarpal joint fracture dislocation Right hand hamate fracture Post-op findings: See procedure note for details Procedure done: Right hand fourth and fifth carpometacarpal joint fracture dislocation closed reduction and percutaneous pinning Implants: 2x0.045 K wires Specimens removed/disposition: None Pathology: None Surgeon: Jason Robles DO Estimated blood loss (mL): 1 No tourniquet used IV fluids: See anesthesia note Complications: None Findings: See operative note Condition: stable Disposition: same day Brief History: Patient seen and evaluated earlier this week by myself in the office. Since he initially the emergency department and found to have fracture of the fourth and fifth metacarpal bases. On x-ray imaging difficult to determine reduction and on examination no significant palpable defect was noted. As a result CT scan was ordered for further evaluation to guide treatment plan. On CT scan he was noticed to have the fourth and fifth carpometacarpal joint fracture dislocation as well as hamate fracture. As result contacted patient and discussion with him over the phone about his CT scan results and recommended right hand fourth and fifth carpometacarpal joint fracture dislocation closed reduction and percutaneous pinning. Would recommend nonoperative management for the hamate fracture. This point detail the risk benefits complications alternatives of surgical intervention. Risk include but are not limited to make it better make it worse, infection, wound dehiscence, increased risk of arthritis loss of function a hand injury to nerves or vessels. With understanding risk patient elects to proceed with surgical intervention. All questions answered. Procedure: Patient was seen and evaluated in the preoperative holding area. His consent was reviewed and we discussed plan for surgery with close reduction percutaneous pinning however did discuss there may need to be a open incision if difficult with reduction. Consent was signed. Appropriate extremity was signed. Patient evaluated by anesthesia. Taken to the operative suite on the [facility] entrance referred to the OR table in supine position with arm on the arm table. All bony prominences were well-padded. Patient was appropriately secured. Patient underwent anesthesia per the anesthesia department. Patient received appropriate preoperative antibiotics. Nonsterile tourniquet applied to the right upper extremity arm. Right upper extremity was prepped and draped in standard orthopedic fashion. Final timeout performed. Mini C arm was brought in to evaluate patient's fracture. Patient had noticeable dislocation of the fourth and fifth carpometacarpal joint with an avulsion of the hamate. Close reduction maneuver was performed with longitudinal traction and subsequent translation from a dorsal to palmar force and x-ray was used to confirm appropriate reduction. Next I loaded a 0.045 K wire on a K wire patient transportation driver and this was advanced along the bases of the fourth fifth and third metacarpals. Once this held our reduction I then placed 1 more K wire from the fifth base into the hamate. These were advanced into appropriate position multiple orthogonal images with mini C arm were used to confirm reduction as well as appropriate bony fixation in the metacarpals as well as the hamate. Satisfactory AP external oblique as well as lateral confirmed satisfactory reduction and fixation. This point I then injected 7 cc of lidocaine and 3 cc of ropivacaine for pain control postoperatively around the pin sites and fracture site. The K wires were then bent and left out of the skin and points were covered with Claudy balls. Pin sites were then covered with Xeroform and 4 x 4's and was then placed into a standard ulnar gutter splint with cast padding and fiberglass prefab splint. Splint was then covered with an Amari wrap. Patient was then awakened from anesthesia and taken to PACU in stable condition. Disposition: Patient to maintain splint until follow-up. Elevation is ice as needed. Nonweightbearing right hand. Patient take pain medication as prescribed. Patient received appropriate discharge instructions. Will see patient back in 2 weeks.
[2021-10-18] MEDS: fentaNYL 50 mcg/mL INJ 2mL IVP (13:05)
--- NOTE | 2021-10-18 16:00 | ANE.PACU2 ---
Inpatient post-anesthesia follow up: Airway intact: Yes Vital signs: Temperature 97.0 F Pulse Rate 49 Respiratory Rate 16 Blood Pressure 145/73 Pulse Oximetry 100 Oxygen Delivery Me thod Room Air Oxygen Flow Rate 8 Fraction of Inspir ed Oxygen Hydration adequate: Yes Nausea and vomiting: No Pain level: 2 Mental status: Baseline
== END 2021-10-18 13:58 | disposition home or self-care (01) ==
PROVIDERS: PCP Family Medicine; Visit Provider Student in an Organized Health Care Education/Training Program
PROC: (CPT 26608; principal; 2021-10-18 11:15)
DX: S62.314A Displaced fracture of base of fourth metacarpal bone, right hand, initial encounter for closed fracture (principal); S62.316A Displaced fracture of base of fifth metacarpal bone, right hand, initial encounter for closed fracture; S62.141A Displaced fracture of body of hamate [unciform] bone, right wrist, initial encounter for closed fracture; R56.9 Unspecified convulsions; F17.200 Nicotine dependence, unspecified, uncomplicated; W22.8XXA Striking against or struck by other objects, initial encounter
CPT/HCPCS: 26608 ×2; 76000; C1713; J1100; J1885; J2250; J2405; J2704; J2795; J3010; J7030

== ENCOUNTER → 2021-10-28 09:45 | Outpatient (BNVA) | payer BC, SELFPAY | PROVIDERS: PCP Family Medicine; Visit Provider Student in an Organized Health Care Education/Training Program | DX: S62.304A Unspecified fracture of fourth metacarpal bone, right hand, initial encounter for closed fracture (principal); S62.141A Displaced fracture of body of hamate [unciform] bone, right wrist, initial encounter for closed fracture; S62.306A Unspecified fracture of fifth metacarpal bone, right hand, initial encounter for closed fracture; X58.XXXA Exposure to other specified factors, initial encounter | CPT/HCPCS: 73130 ==

== ENCOUNTER 2021-10-29 06:00 | Outpatient (RCR) | payer BC, SELFPAY | END 2021-11-15 23:59 | disposition home or self-care (01) | LOC: SOT 06:00 | PROVIDERS: PCP Family Medicine; Visit Provider Student in an Organized Health Care Education/Training Program | DX: S62.306S Unspecified fracture of fifth metacarpal bone, right hand, sequela (principal); X58.XXXS Exposure to other specified factors, sequela | CPT/HCPCS: 97165; 97760 ==

== ENCOUNTER → 2021-11-11 09:57 | Outpatient (BNVA) | payer BC, SELFPAY | PROVIDERS: PCP Family Medicine; Visit Provider Student in an Organized Health Care Education/Training Program | DX: S63.051A Subluxation of other carpometacarpal joint of right hand, initial encounter (principal); S62.304A Unspecified fracture of fourth metacarpal bone, right hand, initial encounter for closed fracture; S62.306A Unspecified fracture of fifth metacarpal bone, right hand, initial encounter for closed fracture; S62.141A Displaced fracture of body of hamate [unciform] bone, right wrist, initial encounter for closed fracture; W01.0XXA Fall on same level from slipping, tripping and stumbling without subsequent striking against object, initial encounter | CPT/HCPCS: 73130 ==

== ENCOUNTER 2021-11-13 07:51 | Day surgery (SDC) | payer BC, SELFPAY ==
[2021-11-12 13:12] VITALS: BMI 21.4
[2021-11-13] VITALS (8 sets, daily range): BP systolic 113–138; BP diastolic 55–82; PULSE 59–87; RESP 13–18; TEMP 36.2–36.7; O2SAT 98–100
--- NOTE | 2021-11-13 | XR_ITS ---
WS: [id number] Exam: XR hand RT 2V [id number] Date/Time of Exam: 11/13/2021 12:00 AM Reason For Exam: ORIF right fourth and fifth CMC fracture dislocation AP and lateral views the right hand are submitted for evaluation. Compared to prior study 11/11/2021. 2 additional pins have been placed in the medial aspect of the hand. One pin superimposes the base of the fourth metacarpal and hamate. The second pin lies transversely over the proximal third fourth an d fifth metacarpals. 2 additional pins cross over the region of the third fourth and fifth proximal m etacarpals and the hamate bone.
--- NOTE | 2021-11-13 | SCC_ITS ---
Procedure done: Right hand superficial K wire pins removed x2 Revision open reduction internal fixation right fourth and fifth CMC fracture dislocation 3 minutes, 10 seconds of fluoroscopic guidance, for a cumulative dose of 3.531 mGy, was provided to Dr. Robles by the radiology department. C-arm images of the right hand were saved for the patient's permanent record. [facility]
--- NOTE | 2021-11-13 08:25 | ANES.PREANE2 ---
Pre-Anesthetic Assessment Height/Weight: Height 1.75 m Weight 65.771 kg Temp Pulse Resp BP Pulse Ox O2 Del Method 97.8 F 74 18 126/66 100 11/13/21 08:10 11/13/21 08:10 11/13/21 08:10 11/13/21 08:10 11/13/21 08:10 11/13/21 08:12 Preop Diagnosis: Right fourth carpometacarpal fracture dislocation failed fixation Operation Date: 11/13/21 09:20 Proposed Procedures p REVISION OPEN REDUCTION INTERNAL FIXATION RIGHT FOURTH AND FIFTH CARPOMETACARPAL FRACTURE WITH DISLOCATION 23961,S62.308A,S62.308A,S62.143A(Right) - Jason Robles DO Familial anesthetic complications: none Was Beta Nicole taken within 24 hours: N/A Was Clonidine taken within 24 hours: N/A Last intake: Intake Last Liquid Date 11/12/21 Last Liquid Time 21:00 Last Solid Date 11/12/21 Last Solid Time 15:00 Social Tobacco (vapes) and No alcohol Exam alert, oriented x 3, clear to auscultation bilaterally and regular rate & rhythm Airway Submandibular: within normal limits Cervical ROM: within normal limits Mallampati: Class II Dentition: chipped Anesthetic Plan ASA status: 2 Anesthesia: General Medications/Allergies Home Medications Medication Instructions Recorded Confirmed Last Taken Type FASTFORM ULNAR GUTTER SPLINT #1 ea 10/14/21 11/11/21 Unknown Rx Allergies Allergy/AdvReac Type Severity Reaction Status Date / Time No Known Allergies Allergy Verified 11/11/21 10:07 [facility] Anesthesia Medical History (Updated 11/12/21 @ 21:19 by Jason Robles DO) Closed dislocation of fourth carpometacarpal joint Closed fracture of 4th metacarpal Closed fracture of 5th metacarpal Fx hamate bone-closed No pertinent past medical history Social History Smoking and tobacco status: current every day smoker smokeless tobacco Data Anesthesia Cardiac Studies: No Data to Display
[2021-11-13] MEDS: ketorolac 30 mg/mL INJ IVP (08:35)
[2021-11-13] MEDS: acetaminophen 1,000 MG/100 ML PIGGYBACK 400 MG IV (08:36)
[2021-11-13] MEDS: sodium chloride 0.9% 1,000 ML 30 ML IV (08:37)
--- NOTE | 2021-11-13 09:14 | P.HPUD_ITS ---
Surgery/Procedure H&P Update DATE OF PROCEDURE: November 13, 2021 DATE H&P PERFORMED: 11/11/21 CHANGES TO PREVIOUS DOCUMENTATION: None PREOP DIAGNOSIS: Right fourth carpometacarpal fracture dislocation failed fixation PRIMARY INDICATION FOR PROCEDURE: Failed fixation right fourth CMC joint with recurrent dislocation PLANNED PROCEDURE: Operation Date: 11/13/21 09:20 Proposed Procedures p REVISION OPEN REDUCTION INTERNAL FIXATION RIGHT FOURTH AND FIFTH CARPOMETACARPAL FRACTURE WITH DISLOCATION 03895 ,S62.308A,S62.308A,S62.143A(Right) - Jason Robles DO
[2021-11-13] MEDS: ceFAZolin 2,000 MG in sodium chloride 0.9% (plus) 50 ML 100 MG IV (09:26)
[2021-11-13] MEDS: lidocaine 1% INJ 20 mL XX (09:52)
--- NOTE | 2021-11-13 11:40 | P.OP_ITS ---
Brief Operative Note Date of procedure: 11/14/21 Pre-op diagnosis: Right fourth CMC fracture dislocation Post-op diagnosis: same (Failed fixation with recurrent right fourth CMC fracture dislocation) Procedure Done: Superficial K wire pin removed x2 of prior fixation Open reduction and internal fixation right fourth fifth CMC fracture dislocation Right short arm cast application Interpretation intraoperative mini C arm fluoroscopic imaging Surgeon: Jason Robles Estimated blood loss (mL): 10 Complications: None Post-op Plan: Patient recover in PACU. Placed in a short arm cast. Be nonweightbearing to the right hand. Patient will follow-up with me in office in 2 weeks. Will be given appropriate discharge instructions as well as pain medication postoperatively. Condition: stable Disposition: same day Coding Level of Care Code Acute Surgical Scrub Technologist for Puma Handley
--- NOTE | 2021-11-13 11:45 | PM.PACU ---
PACU note Narrative: Patient seen evaluated in PACU. Patient's fingers are warm well perfused. Compartment soft compressible. Cast on in place clean dry and intact. Patient is able to wiggle fingers. Pain controlled. Sensation intact to light touch of the right hand. Will discharge home later today. Exam: awake (See narrative for detailed) Disposition: discharged
--- NOTE | 2021-11-13 11:49 | P.OP_ITS ---
Operative Report Date of procedure: November 14, 2021 Pre-op diagnosis: Preop Diagnosis Right fourth carpometacarpal fracture dislocation failed fixation Post-op diagnosis: Same Post-op findings: See procedure note for detail Procedure done: Right hand superficial K wire pins removed x2 Revision open reduction internal fixation right fourth and fifth CMC fracture dislocation Short arm cast application right upper extremity Interpretation intraoperative mini C-arm fluoroscopic imaging Implants: 4x0.045 K wires Surgeon: Jason Robles DO Estimated blood loss: 10 54 minutes IV fluids: See anesthesia record Complications: None Findings: See operative note Condition: stable Disposition: same day Brief History: Jeffery is a 26-year-old male who sustained a fourth and fifth CMC fracture dislocation as well as hamate fracture. He is initially seen and evaluated by myself and underwent closed reduction and percutaneous pinning fixation. Initial mini C arm imaging postoperatively showed stable reduction and fixation fourth and fifth CMC. Patient has had issues with compliance as far as taking splint off prematurely and weightbearing activities through his right hand. As a result through sequential imaging does appear to be recurrent dislocation of the fourth CMC joint with loss of fixation. At this point feel he is still close enough that we would be able to reduce this and add and augment new fixation. Given the loss of fixation my recommendation would be for revision open reduction internal fixation fourth CMC joint. We detailed out the risk benefits complications alternatives surgery and through shared decision making patient elects to proceed with surgical intervention. All questions answered at this time. Consent was obtained in the office. Procedure: Patient was seen evaluate in the preoperative holding area. Consent was reviewed with patient and the correct extremity was then marked. He was then evaluated by the preoperative team as well as anesthesia and once cleared for surgery was taken back to the operative suite placed onto the OR table in supine position with an armboard to the right upper extremity. All bony prominences well-padded patient was appropriately secured to the table. Patient underwent anesthesia per the anesthesia department. Received appropriate preoperative antibiotics. Nonsterile tourniquet was applied to the right upper extremity. Right upper extremity was then prepped and draped in standard orthopedic fashion. Esmarch tourniquet was used to exsanguinate the right upper extremity and tourniquet was insufflated to 250 mmHg. Local injection was made around planned dorsal hand incision utilizing 5 cc lidocaine and 5 cc ropivacaine. Mini C arm was then brought in to evaluate the failed fixation and recurrent fracture dislocation of the fourth CMC joint. This point I remove the 2 superficial K wires that were left out of the skin as I felt this would inhibit my reduction. This point I then performed a standard longitudinal incision centering directly over the fourth CMC joint. Sharp scalpel excision through skin and subsequently Littler dissection scissors were used to dissect down to the fourth CMC joint. Care was made to protect the extensor tendons as well as protect any dorsal cutaneous nerve branches. Small perforating vessels were coagulated utilizing bipolar electrocautery to maintain exact hemostasis. I then came down directly over the fourth and fifth CMC joint. Sharp scalpel excision directly centering over the fourth CMC joint the avulsed hamate fracture was in appropriate position and was healing well this was left alone. It was evidence on further dissection that the fourth CMC joint had noticeable dislocation. This had already begun to heal somewhat with some immature callus as a result I did have to take this down to appropriately mobilize the fourth metacarpal base. At this point once I had this mobile I then inspected the joint there was some articular fracture lines noted however overall congruent articular margin was noted. At this point I utilized a [place] to then lever the fourth metacarpal base back into appropriate positioning. While performing this I then placed a K wire from the base of the fourth metacarpal into the hamate to lock my position of the fourth CMC joint. It was evident that the fifth CMC joint appeared to be in appropriate position and no further reduction was needed here. At this point given patient's noncompliance I plan for excessive augmented fixation of K wires. Next I then placed 2 K wires in horizontal fashion across the fifth fourth and third metacarpals 1 dis dax into the shaft and 1 at the base. Next I then placed a K wire from the base of the fifth metacarpal into the hamate as well. This completed my fixation I then under fluoroscopic imaging confirmed a congruent fourth and fifth CMC joint with buddhist of our joint surface. At this point I then confirmed in multiple orthogonal images with mini C arm that the fourth metacarpal maintained its reduction at the CMC joint in the lateral position. I was pleased with my fixation and under direct visualization the joint was appropriately reduced. The hand was taken through a cascade no evidence of malrotation and the metacarpal head of the fourth did appear to be in more appropriate cascade and not sunken in as his prior clinical examination due to the dorsal dislocation proximally. This point the wound bed was then thoroughly irrigated. Given the placement of my fourth metacarpal base into the hamate pin I did have to cut this and leave this just deep to the skin however the other K wires were cut and left out of the skin for visible removal at a later time. This point was pleased with my fixation wound bed thoroughly irrigated with electrocautery maintained after tourniquet was deflated. I then closed the skin in layered fashion with 3-0 Vicryl suture as well as running horizontal mattress stitch. Pin sites were appropriately cleaned and dressed with Xeroform and well-padded soft dressing with Curlex 4 x 4's ABD as well as cast padding. Given patient's poor compliance I then elected to place patient into a short arm cast utilizing fiberglass. This was then placed to allow to keep his MP joints free and for range of motion. Patient was then awakened from anesthesia and taken to PACU in stable condition Disposition: Patient will be given appropriate discharge instructions as well as pain medication. We will follow-up with me in 2 weeks in office. He should be nonweightbearing to the right upper extremity. He understands he can contact the office for any questions or concerns.
[2021-11-13] MEDS: HYDROcodone-acetaminophen 5-325 mg Tablet 1 TAB PO (12:00)
--- NOTE | 2021-11-13 15:37 | ANE.PACU2 ---
Inpatient post-anesthesia follow up: Airway intact: Yes Vital signs: Temperature 98.1 F Pulse Rate 86 Respiratory Rate 18 Blood Pressure 138/82 Pulse Oximetry 99 Oxygen Delivery Me thod Room Air Oxygen Flow Rate 6 Fraction of Inspir ed Oxygen Hydration adequate: Yes Nausea and vomiting: No Pain level: 3 Mental status: Baseline
== END 2021-11-13 12:20 | disposition home or self-care (01) ==
PROVIDERS: PCP Family Medicine; Visit Provider Student in an Organized Health Care Education/Training Program
PROC: (CPT 26615; principal; 2021-11-13 09:10)
DX: S62.308A Unspecified fracture of other metacarpal bone, initial encounter for closed fracture (principal); S62.143A Displaced fracture of body of hamate [unciform] bone, unspecified wrist, initial encounter for closed fracture; W19.XXXA Unspecified fall, initial encounter
CPT/HCPCS: 26615; 73120; 76000; C1713; J1100; J1885; J2250; J2405; J2704; J2795; J3010; J7030

== ENCOUNTER → 2021-11-22 08:22 | Outpatient (BNVA) | payer BC, SELFPAY | PROVIDERS: PCP Family Medicine; Visit Provider Student in an Organized Health Care Education/Training Program | DX: S63.054D Dislocation of other carpometacarpal joint of right hand, subsequent encounter (principal); S62.141D Displaced fracture of body of hamate [unciform] bone, right wrist, subsequent encounter for fracture with routine healing; S62.306D Unspecified fracture of fifth metacarpal bone, right hand, subsequent encounter for fracture with routine healing; S62.304D Unspecified fracture of fourth metacarpal bone, right hand, subsequent encounter for fracture with routine healing; X58.XXXD Exposure to other specified factors, subsequent encounter | CPT/HCPCS: 73130 ==

== ENCOUNTER → 2021-12-03 10:24 | Outpatient (BNVA) | payer BC, SELFPAY | PROVIDERS: PCP Family Medicine; Visit Provider Student in an Organized Health Care Education/Training Program | DX: S63.26 Dislocation of metacarpophalangeal joint of finger (principal); S62.141D Displaced fracture of body of hamate [unciform] bone, right wrist, subsequent encounter for fracture with routine healing; S62.308D Unspecified fracture of other metacarpal bone, subsequent encounter for fracture with routine healing; X58.XXXD Exposure to other specified factors, subsequent encounter; Z98.890 Other specified postprocedural states | CPT/HCPCS: 73130 ==

== ENCOUNTER → 2021-12-12 10:09 | Outpatient (BNVA) | payer BC, SELFPAY | PROVIDERS: PCP Family Medicine; Visit Provider Student in an Organized Health Care Education/Training Program | DX: S63.051A Subluxation of other carpometacarpal joint of right hand, initial encounter (principal); S62.141A Displaced fracture of body of hamate [unciform] bone, right wrist, initial encounter for closed fracture; S62.344A Nondisplaced fracture of base of fourth metacarpal bone, right hand, initial encounter for closed fracture; S62.316A Displaced fracture of base of fifth metacarpal bone, right hand, initial encounter for closed fracture; X58.XXXA Exposure to other specified factors, initial encounter | CPT/HCPCS: 73130 ==

== ENCOUNTER 2021-12-12 14:36 | Outpatient (CLI) | payer BC, SELFPAY | END 2021-12-12 14:37 | disposition home or self-care (01) | LOC: SPT 14:36 | PROVIDERS: PCP Family Medicine; Visit Provider Student in an Organized Health Care Education/Training Program | DX: Z46.89 Encounter for fitting and adjustment of other specified devices (principal); S62.141D Displaced fracture of body of hamate [unciform] bone, right wrist, subsequent encounter for fracture with routine healing; S62.308D Unspecified fracture of other metacarpal bone, subsequent encounter for fracture with routine healing; X58.XXXD Exposure to other specified factors, subsequent encounter | CPT/HCPCS: 97760; L3984 ==

== ENCOUNTER 2022-01-14 08:54 | Emergency (ER) | payer BC, SELFPAY ==
[2022-01-14 08:55] VITALS: BP 121/77; PULSE 86; RESP 16; TEMP 36.6; O2SAT 100; BMI 22.1
--- NOTE | 2022-01-14 09:13 | XRR_ITS ---
PROCEDURE INFORMATION: Exam: XR Right Hand Exam date and time: 01/14/2022 10:19 AM Age: 26 years old Clinical indication: Injury or trauma; Other: Punched a wall; Blunt trauma (contusions or hematomas); Wrist and hand; Right TECHNIQUE: Imaging protocol: Radiologic exam of the Right hand. Views: 3 or more views. COMPARISON: CR XR hand RT min 3V* [id number] 12/12/2021 10:20 AM FINDINGS: Bones/joints: There are linear lucencies in the 3rd 4th and 5th metacarpal bones from orthopedic pins that have been removed. No fracture, dislocation or other acute bone or joint abnormality. Soft tissues: Normal. XR/XR hand RT min 3V* [id number] IMPRESSION: No acute abnormality.
--- NOTE | 2022-01-14 09:13 | XRR_ITS ---
PROCEDURE INFORMATION: Exam: XR Right Wrist Exam date and time: 01/14/2022 10:19 AM Age: 26 years old Clinical indication: Injury or trauma; Other: Punched a wall; Blunt trauma (contusions or hematomas); Wrist and hand; Right TECHNIQUE: Imaging protocol: Radiologic exam of the Right wrist. Views: 3 or more views. COMPARISON: CT wrist RT wo con* [id number] 10/16/2021 2:14 PM FINDINGS: Bones/joints: There are linear lucencies in the 3rd 4th and 5th metacarpal bones from orthopedic pins which have been removed. No recent fracture, dislocation or other acute abnormality. There is mild chronic degenerative joint disease with mild joint space narrowing. Soft tissues: Normal. XR/XR wrist RT min 3V* [id number] IMPRESSION: Mild chronic degenerative disease. No acute abnormality.
--- NOTE | 2022-01-14 09:45 | ED_ITS ---
HPI - Extremity Problem General: Chief complaint: Extremity Injury, Upper Stated complaint: right wrist injury Time Seen by Provider: 01/14/22 09:14 History of Present Illness: Patient is a 26-year-old male comes to the ED with right hand and wrist injury. Injury occurred yesterday. He states that he was pulling on a plastic strap to open up a box. The strap broke and he fell backwards. He landed with his right arm. He felt pain in right wrist after fall. He states that his pain is mild when he is not moving his wrist. Any movement causes worsening pain. Associated symptoms: Deny chest pain, fever(s) or rash Review of Systems Const: Denies: fever(s), chills or fatigue Eyes: Denies: change in vision or eye discomfort ENMT: Denies: throat pain, odynophagia, nasal discharge or nasal congestion Card: Denies: chest pain, palpitations, edema, swelling of feet/ankles, dysp terra on exertion or orthopnea Resp: Denies: dyspnea, productive cough or non-productive cough GI: Denies: abdominal pain, nausea, vomiting, diarrhea, constipation or hematochezia : Denies: flank pain, difficulty urinating, dysuria or hematuria Musc: Reports: extremity pain (Right wrist); Denies: neck pain, back pain or extremity swelling Skin/Breast: Denies: rash or new lesions Neuro: Denies: headache(s), numbness in extremities or weakness in extremities [facility] ED PFSH: Medical History (Updated 01/14/22 @ 09:56 by DOREEN Arevalo) Closed dislocation of fourth carpometacarpal joint Closed fracture of 4th metacarpal Closed fracture of 5th metacarpal Fx hamate bone-closed No pertinent family history No pertinent past medical history Psychiatric care Social History Smoking and tobacco status: current every day smoker smokeless tobacco Physical Exam Const: COMMON NORMALS: no acute distress, patient oriented x3, healthy appearing and alert GENERAL APPEARANCE: cooperative and comfortable HENMT: COMMON NORMALS: normocephalic HEAD & SCALP: normocephalic MOUTH: Normal oral and palatal mucosa present THROAT: posterior oropharynx normal and uvula midline Neck/C-Spine: COMMON NORMALS: supple GENERAL: Yes normal visual inspection Resp: COMMON NORMALS: normal respiratory effort, No retractions, No use of accessory muscles and clear to auscultation bilaterally AUSCULTATION: clear to auscultation bilaterally Cardio: COMMON NORMALS: regular rate, regular rhythm, S1 normal heart sound present, S2 normal heart sound present, No gallops present (Cardio), No clicks present (Cardio), No murmurs present (Cardio) and Peripheral pulses 2+ throughout RATE: regular rate RHYTHM: regular rhythm HEART SOUNDS: S1 normal heart sound present and S2 normal heart sound present PERIPHERAL PULSES: Peripheral pulses 2+ throughout GI: COMMON NORMALS: Normal to inspection, nondistended, normoactive bowel sounds present, Soft to palpation, non-tender and no masses PALPATION: Yes Soft to palpation : COMMON NORMALS: Yes no CVA tenderness BLADDER/KIDNEY EXAM: Yes no CVA tenderness Back/Pelvis: COMMON NORMALS: no CVA tenderness Extremity: COMMON NORMALS: normal to inspection, full ROM and capillary refill normal NARRATIVE EXTREMITY EXAM: Right wrist?no visible swelling or deformities noted. Tenderness over radial aspect of wrist. Full range of motion. Neurovascular intact. Neuro: COMMON NORMALS: patient oriented x3 SENSORIUM/ORIENTATION: Yes alert GAIT: Yes Normal gait present Skin: GENERAL SKIN EXAM: dry skin Course Vital Signs: Vital signs: Vital Signs Temperature 97.9 F 01/14/22 08:55 Pulse Rate 86 01/14/22 08:55 Respiratory Rate 16 01/14/22 08:55 Blood Pressure 121/77 01/14/22 08:55 Pulse Oximetry 100 01/14/22 08:55 Oxygen Delivery Me thod 01/14/22 08:55 MDM - Extremity (Nontraumatic) Medical Decision Making Patient is a 26-year-old male comes to the ED with right wrist and right hand injury. Patient fell and landed on right wrist causing symptoms. Vitals are stable. Exam shows some tenderness over radial aspect of wrist but he has full range of motion and is neurovascular intact. No visible swelling or deformities noted. X-ray right hand and right wrist showed no acute fractures or findings. Patient was diagnosed with a right wrist sprain and was discharged home with a Velcro wrist splint. Told to follow-up with PCP in the next week for reevaluation. Return ED precautions given. Patient understood and agreed with plan. Lab Data Radiology Impressions Hand X-Ray 01/14/22 09:13 IMPRESSION: No acute abnormality. Wrist X-Ray 01/14/22 09:13 IMPRESSION: Mild chronic degenerative disease. No acute abnormality. Discharge Plan Discharge Patient Disposition: Home Clinical Impression: Right wrist sprain Qualifiers: Encounter type: initial encounter Qualified Code(s): S63.501A - Unspecified sprain of right wrist, initial encounter Condition: Stable Prescriptions: No Action (DME) FASTFORM ULNAR GUTTER SPLINT See Rx Instructions .Route .MEDSUPPLY Qty: 1 0RF Rx Instructions: As directed (DME) FAST FORM See Rx Instructions .Route .MEDSUPPLY Qty: 1 0RF Rx Instructions: As directed Discharge Orders: Discharge ED (Routine); Ordered 01/14/22 Ordered By: Scott Robles Referrals: Marcelino Shields MD [Primary Care Provider] - Discharge Diet: Regular Discharge Activity: Increase activity as tolerated Activity Restrictions/Additional Instructions: Follow-up with medical provider as directed in the next 7 to 10 days reevaluation. Apply cold pack on wrist to help with symptoms. Take [id number] Tylenol or ibuprofen per bottle instruction to help with pain. Wear wrist splint as needed for comfort. Return to the ER or your medical provider if condition worsens. Please read and understand discharge instructions. Thank you for choosing [facility] for your healthcare needs today. Please realize this is an emergency room and that we are providing you with a medical screening exam and this may not be complete and all inclusive of all the testing and or work up that you may need to determine your ailment or severity of your illness. It is very important that you follow up as instructed or that you return to the Emergency Department should you have concerns or if your condition changes or worsens in any way. Coding Level of Care Code ED Resident Intern for Puma Handley Exam Comprehensive
[2022-01-14 09:48] VITALS: PULSE 60
== END 2022-01-14 09:58 | disposition home or self-care (01) ==
PROVIDERS: Emergency Provider Physician Assistant; PCP Family Medicine
DX: S63.501A Unspecified sprain of right wrist, initial encounter (principal); F17.210 Nicotine dependence, cigarettes, uncomplicated; W18.30XA Fall on same level, unspecified, initial encounter
CPT/HCPCS: 73110; 73130; 99283

== ENCOUNTER 2022-08-19 10:36 | Emergency (ER) | payer BC, MEDICAID, SELFPAY ==
[2022-08-19 10:51] VITALS: BP 107/84; PULSE 86; RESP 16; TEMP 36.8; O2SAT 100; BMI 21.5
--- NOTE | 2022-08-19 11:27 | ED_ITS ---
HPI - Wound/Laceration General: Chief Complaint: Wound/Laceration Stated Complaint: right arm lac Time Seen by Provider: 08/19/22 10:40 History of Present Illness: 27 yo male patient presents to the ER with superficial laceration to right forearm. 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 Pt presents with bleeding controlled. Pt denies any SI or HI. Pt states years ago he had SI but was put on meds and has been without any concerns or troubles. states she has no concerns for SI. This occurred today. Pt states he is also weak and not able to eat. Pt denies any abd pain, n/v/d. Pt states he just feels weak and tired. Pt dnies any chest pain or SOB or fever. 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10 Associated symptoms: Denies chills, fever(s), nausea, syncope or vomiting Review of Systems Const: Denies: fever(s), chills, body aches, change in weight, malaise or diaphoresis Eyes: Denies: change in vision, blurry vision, blind spots, photophobia, eye discomfort, eye discharge, eye redness, floaters or seeing flashes ENMT: Denies: throat pain, uvular edema, enlarged tonsils, odynophagia, hoarseness, mouth pain, swelling of lips/tongue, oral sores, bleeding gums, dental pain, dry mouth, ear or mastoid pain, ear discharge, change in hearing, tinnitus, disequilibrium, nasal discharge, nasal congestion, post nasal drip or sinus pain Card: Denies: chest pain, palpitations, irregular heart rhythm, edema, swelling of feet/ankles, lightheadedness, syncope, pre-syncope, dyspnea on exertion, orthopnea, leg pain with exertion or acrocyanosis Resp: Denies: dyspnea, productive cough, non-productive cough, wheezing, stridor, pain on inspiration, change in phlegm color, hemoptysis or chest congestion GI: Denies: abdominal pain, nausea, vomiting, hematemesis, dysphagia, diarrhea, constipation, GI cramping, change in bowel habits or rectal pain : Denies: flank pain, dysuria, urinary frequency, urinary urgency, urinary hesitancy or hematuria Musc: Denies: neck pain, back pain, extremity swelling, joint pain, joint swelling, joint redness, joint warmth or deformity Skin/Breast: Denies: rash, pruritus, erythema, sores, new lesions, changes in skin color or dry skin Neuro: Denies: headache(s), numbness in extremities, weakness in extremities, sensory changes, lack of coordination, difficulty walking, frequent falls, dizziness, vertigo, confusion, behavioral changes, Slurred speech present, difficulty communicating thoughts or seizure-like activity Psych: Denies: anxiety, depression, suicidal ideation or homicidal ideation Endo: Denies: polyuria, polydipsia, tired all the time, cold intolerance, excessive sweating, flushing, hot flashes or heat intolerance Devyn/Lymph: Denies: easy bruising, easy bleeding, petechiae, purpura, enlarged lymph nodes or tender lymph nodes All/Imm: Denies: urticaria, throat swelling, tongue swelling, facial swelling, acute wheezing or itchy eyes PFSH ED PFSH: Medical History Closed dislocation of fourth carpometacarpal joint Closed fracture of 4th metacarpal Closed fracture of 5th metacarpal Fx hamate bone-closed No pertinent family history No pertinent past medical history Psychiatric care Social History Smoking and tobacco status: current every day smoker smokeless tobacco Physical Exam Const: COMMON NORMALS: no acute distress, patient oriented x3, healthy appea ring, alert and well nourished GENERAL APPEARANCE: cooperative, comfortable, well kempt and well developed; not ill appearing ORIENTATION/CONSCIOUSNESS: Yes awake, Yes oriented to person, Yes oriented to place and Yes oriented to time HENMT: COMMON NORMALS: normocephalic, atraumatic, hearing grossly normal bilaterally, external ears normal, EAC's normal, TM's normal bilaterally, Normal external nose present, Normal nasal mucous membranes and turbinates present and moist oral mucous membranes HEAD & SCALP: normal to inspection, normocephalic and atraumatic FACE & SINUS: normal facial exam, sinuses nontender and face symmetric NOSE: Normal external nose present, Normal nares present, Normal nasal mucous membranes and turbinates present, No nasal discharge present and Abnormal external nose present EXTERNAL EAR: Yes external ears normal and Yes mastoids normal EXTERNAL AUDITORY CANAL: EAC's normal TYMPANIC MEMBRANE: TM's normal bilaterally MOUTH: Normal oral and palatal mucosa present, lip normal, tongue normal and Normal salivary glands and ducts present THROAT: no uvular edema Eye: COMMON NORMALS: Equal, round and reactive pupils present, EOMs intact bilaterally, conjunctivae normal, no scleral icterus and no papilledema GENERAL EYE: appearance normal, both eyes and all related structures EYELID: eyelids normal CONJUNCTIVA: Yes conjunctivae normal SCLERA: sclerae normal CORNEA: Yes corneas normal PUPIL: Yes Equal, round and reactive pupils present DIRECT OPHTHALMOSCOPY: Yes no papilledema Neck/C-Spine: COMMON NORMALS: full ROM, no lymphadenopathy, supple, no meningeal signs, no JVD and Thyroid normal GENERAL: Yes normal visual inspection and Yes trachea midline THYROID: Thyroid normal CERVICAL SPINE: Yes cervical ROM normal Lymph: LYMPHATIC: no lymphadenopathy noted and no lymphedema noted Chest: COMMONS NORMALS: normal inspection of the chest and normal palpation of entire chest wall Resp: COMMON NORMALS: normal respiratory effort, No retractions, No use of accessory muscles and clear to auscultation bilaterally EFFORT & INSPECTION: Yes able to speak in complete sentences and Yes symmetric chest movement AUSCULTATION: clear to auscultation bilaterally Cardio: COMMON NORMALS: no JVD, regular rate and regular rhythm RATE: regular rate RHYTHM: regular rhythm GI: COMMON NORMALS: Normal to inspection, nondistended, normoactive bowel sounds present, Soft to palpation, non-tender, No hepatosplenomegaly present, no masses and no bruits INSPECTION: Yes normal to inspection AUSCULTATION: Yes normoactive bowel sounds PALPATION: Yes Soft to palpation and Yes No hepatosplenomegaly present PERCUSSION: normal to percussion RECTAL EXAM: Yes deferred : COMMON NORMALS: Yes no CVA tenderness BLADDER/KIDNEY EXAM: Yes no CVA tenderness Back/Pelvis: COMMON NORMALS: no CVA tenderness, thoracic and lumbar spine normal to inspection, no thoracic nor lumbar tenderness, thoraco-lumbar ROM normal and straight leg raise negative bilaterally THORACIC SPINE/UPPER BACK: Yes normal to inspection LUMBAR SPINE/LOWER BACK: Yes normal to inspection Extremity: COMMON NORMALS: normal to inspection, full ROM and capillary refill normal GENERAL: Yes normal exam except as noted Neuro: COMMON NORMALS: patient oriented x3, CN's II-XII intact bilaterally, moves all extremities, no focal motor deficits, no sensory deficits noted, deep tendon reflexes 2+ bilaterally and gait normal SENSORIUM/ORIENTATION: Yes alert, Yes oriented to person, Yes oriented to place and Yes oriented to time MENINGEAL SIGNS: Yes no meningeal signs CRANIAL NERVES: Yes CN normal except as noted SPEECH: speech normal GAIT: Yes Normal gait present SENSORY EXAM: Yes extremities MOTOR EXAM: 5/5 motor strength present throughout Psych: COMMON NORMALS: mental status grossly normal, Normal thought process present, cooperative, normal affect, speech normal, activity/motor behavior normal, denies hallucinations, denies homicidal ideation and denies suicidal ideation APPEARANCE: Yes grossly normal and Yes well kempt ATTITUDE: Yes calm ACTIVITY/MOTOR BEHAVIOR: Yes appropriate eye contact SPEECH: Yes normal speech THOUGHT PROCESS: Normal thought process present THOUGHT CONTENT: Yes Normal thought content present ATTENTION/CONCENTRATION: Yes attention grossly intact MEMORY/COGNITION: Yes memory grossly intact INSIGHT: Good insight present (Psych) JUDGEMENT: Good judgement present (Psych) Skin: COMMON NORMALS: no rashes or lesions noted, turgor normal, no jaundice, no petechiae and no mottling GENERAL SKIN EXAM: no rashes or lesions noted and turgor normal Course Vital Signs: Vital signs: Vital Signs Temperature 98.2 F 08/19/22 10:51 Pulse Rate 86 08/19/22 10:51 Respiratory Rate 16 08/19/22 10:51 Blood Pressure 107/84 08/19/22 10:51 Pulse Oximetry 100 08/19/22 10:51 Oxygen Delivery Me thod Room Air 08/19/22 10:51 MDM - Wound/Laceration Medical Decision Making Patient is well appearing non toxic and in no acute distress. 27 yo male patient presents to the ER with superficial laceration to right forearm. 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 Pt presents with bleeding controlled. Pt denies any SI or HI. Pt states years ago he had SI but was put on meds and has been without any concerns or troubles. states she has no concerns for SI. This occurred today. Pt states he is also weak and not able to eat. Pt denies any abd pain, n/v/d. Pt states he just feels weak and tired. Pt dnies any chest pain or SOB or fever. 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 Tetanus was updated. Pt wants to sign out AMA as he does not want labs or urine. Pt states he is really just here for tetanus and antibiotics. I explained to patient roosks of signing out before testing is done and patient verbalizes he understands these risks. Discharge Plan Discharge Patient Disposition: Left Against Medical Advice Clinical Impression: Laceration Condition: Stable Prescriptions: New cephalexin 500 mg capsule 500 mg PO Q8H 7 Days Qty: 21 0RF No Action (DME) FASTFORM ULNAR GUTTER SPLINT See Rx Instructions .Route .MEDSUPPLY Qty: 1 0RF Rx Instructions: As directed (DME) FAST FORM See Rx Instructions .Route .MEDSUPPLY Qty: 1 0RF Rx Instructions: As directed Referrals: Marcelino Shields MD [Primary Care Provider] - Coding Level of Care Code ED Machine Gun Mechanic for Puma Handley
[2022-08-19] MEDS: tetanus-diphtheria tox (adult) 0.5 mL SDV IM (11:34)
== END 2022-08-19 11:53 | disposition left against medical advice (07) ==
PROVIDERS: Emergency Provider Registered Nurse; PCP Family Medicine
DX: S51.811A Laceration without foreign body of right forearm, initial encounter (principal); Z53.21 Procedure and treatment not carried out due to patient leaving prior to being seen by health care provider; W18.2XXA Fall in (into) shower or empty bathtub, initial encounter; Y92.142 Bathroom in prison as the place of occurrence of the external cause; F17.220 Nicotine dependence, chewing tobacco, uncomplicated; Z23 Encounter for immunization
CPT/HCPCS: 90471; 90714; 99283

== ENCOUNTER 2022-09-18 15:56 | Emergency (ER) | payer BC, MEDICAID, SELFPAY ==
[2022-09-18 15:57] VITALS: BP 117/71; PULSE 79; RESP 15; TEMP 36.7; O2SAT 100
--- NOTE | 2022-09-18 16:20 | XR_ITS ---
WS: [id number] 3 views of the right fourth finger, 09/18/2022 Clinical Data: index finger; laceration Comparison: Right hand, 01/14/2022 Findings: No new fractures or dislocations are seen. There is an old fracture of the right fifth metacarpal. Th e joint spaces are not remarkable. There is a small divot on the ulnar side of the subcutaneous tissue of the mid portion of the middle phalanx. No foreign body is seen. XR/XR finger RT min 2V 20305 Impression: Negative for bony abnormality of the right fourth finger.
--- NOTE | 2022-09-18 16:21 | ED_ITS ---
HPI - Wound/Laceration General: Chief Complaint: Wound/Laceration Stated Complaint: RT ring finger lac Time Seen by Provider: 09/18/22 15:57 Source: patient Mode of arrival: ambulatory Limitations: no limitations History of Present Illness: Patient is a 27-year-old male who presents to ED today for a laceration to his right index finger that he sustained just prior to arrival after cutting out on a piece of glass. Tetanus is up-to-date. Onset (ago): hour(s) Extremity Location: Right: hand (R ring finger) Place: home Patient tetanus UTD: Yes Context: accidental Associated symptoms: Reports no associated symptoms Review of Systems Musc: Reports: extremity pain (R ring finger); Denies: extremity swelling, joint pain or joint swelling Skin/Breast: Reports: other (finger laceration) Neuro: Denies: numbness in extremities or sensory changes [facility] ED PFSH: Medical History Closed dislocation of fourth carpometacarpal joint Closed fracture of 4th metacarpal Closed fracture of 5th metacarpal Fx hamate bone-closed No pertinent family history No pertinent past medical history Psychiatric care Social History Smoking and tobacco status: current every day smoker smokeless tobacco Physical Exam Const: COMMON NORMALS: no acute distress, no limitations, healthy appearing, alert and well nourished Extremity: COMMON NORMALS: full ROM and capillary refill normal GENERAL: Yes normal exam except as noted RIGHT UPPER EXTREMITY: Yes hand & digits (1cm laceration ulnar side of R ring finger in between DIP/PIP joints) Right hand and digits: Yes ROM exam (normal), Yes neurovascular exam (normal) and Yes tendon exam (normal ROM against resistance in all [place]) Neuro: COMMON NORMALS: moves all extremities, no focal motor deficits and no sensory deficits noted SENSORIUM/ORIENTATION: Yes alert Skin: TRAUMA: laceration (R ring finger) Procedures Laceration Laceration 1: Site: hand (R ring finger) Side (If applicable): right Size (cm): 1.5 Description: linear Depth: simple, single layer Local Anesthetic: lidocaine 1% Amount of anesthesia used (mL): 3.0 Pre-repair: wound explored and irrigated extensively Skin layer closed with: nylon Size (cm): 5-0 Number of sutures: 3 Technique: simple, interrupted Course Vital Signs: Vital signs: Vital Signs Temperature 98.1 F 09/18/22 15:57 Pulse Rate 79 09/18/22 15:57 Respiratory Rate 15 09/18/22 15:57 Blood Pressure 117/71 09/18/22 15:57 Pulse Oximetry 100 09/18/22 15:57 Oxygen Delivery Me thod Room Air 09/18/22 15:57 MDM - Wound/Laceration Medical Decision Making XR negative for bony involvement or foreign bodies. Wound was copiously irrigated and repaired as documented. Wound care/infection precautions given. Discharge Plan Discharge Patient Disposition: Home Clinical Impression: Laceration of right ring finger Qualifiers: Encounter type: initial encounter Damage to nail status: without damage Foreign body presence: without foreign body Qualified Code(s): S61.214A - Laceration without foreign body of right ring finger without damage to nail, initial encounter Condition: Stable Prescriptions: No Action (DME) FASTFORM ULNAR GUTTER SPLINT See Rx Instructions .Route .MEDSUPPLY Qty: 1 0RF Rx Instructions: As directed (DME) FAST FORM See Rx Instructions .Route .MEDSUPPLY Qty: 1 0RF Rx Instructions: As directed Discharge Orders: Discharge ED (Routine); Ordered 09/18/22 Ordered By: Ayanna Gipson Referrals: Marcelino Shields MD [Primary Care Provider] - Patient Instructions: Care For Your Stitches (DC), Laceration (DC), Finger Laceration (ED) Activity Restrictions/Additional Instructions: Keep wound/laceration clean with warm soap and water twice daily. Monitor for signs of infection such as redness, swelling, increased pain, or drainage. Please seek medical re-evaluation if these occur. If you received sutures today these will need to be removed (unless you were told by the provider that they are absorbable). The provider should have discussed with you the length of time until removal-7 DAYS. You may return to the emergency department for this service. If your wound was closed with Steri-Strips or glue/adhesive these will fall off within the next week or so. Coding Level of Care Code ED Data Control Assistant for Puma Handley
== END 2022-09-18 16:58 | disposition home or self-care (01) ==
PROVIDERS: Emergency Provider Physician Assistant; PCP Family Medicine
DX: S61.214A Laceration without foreign body of right ring finger without damage to nail, initial encounter (principal); F17.220 Nicotine dependence, chewing tobacco, uncomplicated; W25.XXXA Contact with sharp glass, initial encounter
CPT/HCPCS: 12001; 73140; 99283

== ENCOUNTER 2022-09-24 20:06 | Emergency (ER) | payer BC, MEDICAID, SELFPAY ==
[2022-09-24 20:20] VITALS: BP 119/58; PULSE 80; RESP 18; TEMP 36.7; O2SAT 97; BMI 21.4
--- NOTE | 2022-09-24 20:21 | W.ED.WOUNDLC ---
HPI - Wound/Laceration General: Chief Complaint: Extremity Problem,Nontraumatic Stated Complaint: stiches in finger, swollen Time Seen by Provider: 09/24/22 20:10 History of Present Illness: Patient came in today for concerns of redness and swelling of wound to the right ring finger. Approximately 5 days ago patient had a laceration that was repaired by 3 sutures. Over the last 24 hours patient had increased redness and swelling to the wound site and had noticed some purulent drainage from the wound. Spouse reported that patient had night sweats last night. Patient denies any significant pain or discomfort. Patient is immunizations are up-to-date. Patient reports no chronic medical problems or allergies. Associated symptoms: Denies nausea or vomiting Review of Systems General: Reports: 10 or more systems reviewed and unremarkable except in HPI and below Const: Reports: night sweats Card: Denies: chest pain Resp: Denies: dyspnea GI: Denies: nausea or vomiting Musc: Reports: extremity pain and extremity swelling Skin/Breast: Reports: erythema PFSH ED PFSH: Medical History Closed dislocation of fourth carpometacarpal joint Closed fracture of 4th metacarpal Closed fracture of 5th metacarpal Fx hamate bone-closed No pertinent family history No pertinent past medical history Psychiatric care Social History Smoking and tobacco status: current every day smoker smokeless tobacco Physical Exam Const: COMMON NORMALS: alert HENMT: COMMON NORMALS: normocephalic HEAD & SCALP: normocephalic Neck/C-Spine: COMMON NORMALS: full ROM Resp: COMMON NORMALS: normal respiratory effort and clear to auscultation bilaterally AUSCULTATION: clear to auscultation bilaterally Cardio: COMMON NORMALS: regular rate RATE: regular rate Back/Pelvis: COMMON NORMALS: thoracic and lumbar spine normal to inspection Extremity: RIGHT UPPER EXTREMITY: Yes hand & digits (Ring finger has mild redness and swelling. Cap refill intact) Right hand and digits: Yes inspection, Yes palpation and Yes ROM exam Neuro: SENSORIUM/ORIENTATION: Yes alert Skin: COMMON NORMALS: turgor normal GENERAL SKIN EXAM: turgor normal Course Vital Signs: Vital signs: Vital Signs Temperature 98.0 F 09/24/22 20:20 Pulse Rate 87 08/09/23 20:37 Respiratory Rate 16 09/24/22 20:37 Blood Pressure 129/70 09/24/22 20:37 Pulse Oximetry 99 09/24/22 20:37 Oxygen Delivery Me thod Room Air 09/24/22 20:37 MDM - Wound/Laceration Medical Decision Making 27-year-old male patient comes in with redness and swelling to the right ring finger along the laceration line. Patient has 3 sutures intact to the laceration. Patient has normal range of motion but limited due to swelling. Cap refill and sensation is intact. Wound is well-approximated with some mild purulent drainage. Differential diagnosis includes not limited to wound infection, tenosynovitis, abscess. No signs of severe illness or injury is noted. Sutures were removed. Patient had mupirocin ointment applied to the wound and patient was started on Augmentin. Recommend follow-up with primary care for further instruction. Recommend return to the ED for worsening symptoms or new concerns. Discharge Plan Discharge Patient Disposition: Home Clinical Impression: Infected puncture wound of finger Qualifiers: Encounter type: initial encounter Qualified Code(s): S61.239A - Puncture wound without foreign body of unspecified finger without damage to nail, initial encounter Condition: Stable Prescriptions: New amoxicillin-pot clavulanate 875-125 mg tablet 1 tab PO BID Qty: 14 0RF No Action (DME) FASTFORM ULNAR GUTTER SPLINT See Rx Instructions .Route .MEDSUPPLY Qty: 1 0RF Rx Instructions: As directed (DME) FAST FORM See Rx Instructions .Route .MEDSUPPLY Qty: 1 0RF Rx Instructions: As directed Discharge Orders: Discharge ED (Routine); Ordered 09/24/22 Ordered By: Klever Whitt Referrals: Marcelino Shields MD [Primary Care Provider] - Discharge Diet: Usual diet Discharge Activity: Increase activity as tolerated Patient Instructions: Wound Infection (ED) Activity Restrictions/Additional Instructions: Try to keep wound as dry as possible. Clean wound twice a day with soap and water, apply mupirocin ointment, and cover with bandage. Take oral antibiotic, amoxicillin?potassium clavulanate, 1 tablet twice a day for 7 days. 3 plenty of water and fluids. Follow-up with primary care in 1 week for recheck. Return to ED for worsening symptoms such as high fever greater than 100.4, inability to hold fluids down, increasing redness and swelling of the hand. Coding Level of Care Code ED Appraisal Specialist for Puma Handley
[2022-09-24] MEDS: amoxicillin-clav 875-125 mg Tablet 1 TAB PO (20:31)
[2022-09-24 20:37] VITALS: BP 129/70; PULSE 87; RESP 16; O2SAT 99
[2022-09-24] MEDS: mupirocin oint 22 gm 1 APPLIC TOPICAL (20:41)
== END 2022-09-24 20:49 | disposition home or self-care (01) ==
PROVIDERS: Emergency Provider Nurse Practitioner Family; PCP Family Medicine
DX: S61.234A Puncture wound without foreign body of right ring finger without damage to nail, initial encounter (principal); L08.9 Local infection of the skin and subcutaneous tissue, unspecified; F17.220 Nicotine dependence, chewing tobacco, uncomplicated; X58.XXXA Exposure to other specified factors, initial encounter
CPT/HCPCS: 99283

== ENCOUNTER 2023-03-17 15:25 | Emergency (ER) | payer BC, MEDICAID, SELFPAY ==
[2023-03-17 15:33] VITALS: BP 158/83; PULSE 87; RESP 16; TEMP 36.7; O2SAT 99; BMI 21.9
--- NOTE | 2023-03-17 15:40 | W.ED.DENTAL ---
HPI - Dental/Oral General: Chief complaint: Dental/Oral Stated complaint: mouth pain Time Seen by Provider: 03/17/23 15:29 Source: patient Mode of arrival: ambulatory Limitations: no limitations History of Present Illness: Patient is a 27-year-old male presents to ED today for treatment of severe left lower dental pain beginning today. Patient states he has had a broken left lower molar for approximately a year that has bothered him on and off but has always been treatable with OTC ibuprofen. He states today pain became sudden and severe. Reporting sharp nerve like stabbing pain in the tooth. Has not noticed any swelling. MD Complaint: tooth pain Teeth map: 1. broken molar Onset (ago): hour(s) Duration: constant Severity: severe Severity scale (1-10): >10 Exacerbating factors: nothing Context: history of dental caries and poor dental care Associated symptoms: Reports no associated symptoms; Denies ear or mastoid pain, fever(s) or odynophagia Treatment prior to arrival: topical analgesic and oral analgesic Review of Systems Const: Denies: fever(s) ENMT: Reports: dental pain; Denies: throat pain, uvular edema, enlarged tonsils, odynophagia, hoarseness, mouth pain, swelling of lips/tongue, oral sores, bleeding gums or ear or mastoid pain GI: Denies: nausea or vomiting Musc: Denies: neck pain Neuro: Denies: headache(s) or dizziness REPLACED BY [facility] ED PFSH: Medical History No pertinent family history Closed dislocation of fourth carpometacarpal joint Fx hamate bone-closed Closed fracture of 5th metacarpal Closed fracture of 4th metacarpal No pertinent past medical history Social History Smoking and tobacco/nicotine status: current every day tobacco/nicotine user smokeless tobacco Physical Exam Const: COMMON NORMALS: average body habitus, patient oriented x3, no limitations, healthy appearing, alert and well nourished GENERAL APPEARANCE: cooperative and in distress (appears significantly uncomfortable secondary to pain) HENMT: FACE & SINUS: normal facial exam, sinuses nontender and face symmetric MOUTH: Normal oral and palatal mucosa present and lip normal TEETH & GINGIVA IMAGES: 1. broken molar; no swelling or abscess THROAT: no uvular edema Neck/C-Spine: GENERAL: No anterior neck swelling and No submandibular swelling Neuro: COMMON NORMALS: patient oriented x3 and CN's II-XII intact bilaterally SENSORIUM/ORIENTATION: Yes alert Procedures Nerve Block Nerve Block 1: Time out performed: Yes Local Anesthetic: lidocaine 1% and with epi Amount of anesthesia used (mL): 3.0 Side: left Intraoral Nerve Block: inferior alveolar Procedure Successful: Yes Patient Tolerated Procedure: well Complications: none Course Vital Signs: Vital signs: Vital Signs Temperature 98.0 F 03/17/23 15:33 Pulse Rate 87 03/17/23 15:33 Respiratory Rate 16 03/17/23 15:33 Blood Pressure 158/83 03/17/23 15:33 Pulse Oximetry 99 03/17/23 15:33 Oxygen Delivery Me thod Room Air 03/17/23 15:33 MDM - Dental/Oral Medical Decision Making Patient was given a dental nerve [id number]. He will be sent with pain medications and antibiotics. He was given dental resources. states they will call around to local dentist offices and try to get him seen as soon as possible. Return to ED precautions given. Differential Diagnosis Likely gingival abscess, dental caries, toothache, dental abscess and fracture of tooth Medical Records I reviewed the patient's medical records. No radiology studies performed this visit Discharge Plan Discharge Patient Disposition: Home Clinical Impression: Toothache Condition: Stable Prescriptions: New hydrocodone-acetaminophen 5-325 mg tablet 1 tab PO Q6H PRN (Reason: pain) Qty: 14 0RF penicillin V potassium 500 mg tablet 500 mg PO Q8H 7 Days Qty: 21 0RF No Action (DME) FASTFORM ULNAR GUTTER SPLINT See Rx Instructions .Route .MEDSUPPLY Qty: 1 0RF Rx Instructions: As directed (DME) FAST FORM See Rx Instructions .Route .MEDSUPPLY Qty: 1 0RF Rx Instructions: As directed amoxicillin-pot clavulanate 875-125 mg tablet 1 tab PO BID Qty: 14 0RF Discharge Orders: Discharge ED (Routine); Ordered 03/17/23 Ordered By: Ayanna Gipson Referrals: Marcelino Shields MD [Primary Care Provider] - Patient Instructions: Toothache (ED), Opioid Safety, Pain Management Coding Level of Care Code ED Lead Business Analyst for Chg Emmanuelle
== END 2023-03-17 16:18 | disposition home or self-care (01) ==
PROVIDERS: Emergency Provider Physician Assistant; PCP Family Medicine
DX: K08.89 Other specified disorders of teeth and supporting structures (principal); F17.220 Nicotine dependence, chewing tobacco, uncomplicated
CPT/HCPCS: 64400; 99283

== ENCOUNTER 2023-10-23 18:37 | Emergency (ER) | payer MEDICAID, SELFPAY ==
[2023-10-23 18:45] VITALS: BP 116/76; PULSE 72; RESP 16; TEMP 36.6; O2SAT 99; BMI 22.2
[2023-10-23 19:22] VITALS: BP 122/61; PULSE 71; O2SAT 99
--- NOTE | 2023-10-23 19:46 | W.ED.EYEPROB ---
HPI - Eye Problem General: Chief complaint: Eye Problems Stated complaint: metal in right eye, right foot infection Time Seen by Provider: 10/23/23 19:15 History of Present Illness: Patient presents to the ER with metal in his right eye and an ingrown toenail on his right great toe. Patient said he was grinding about 2 days ago when a piece of metal flew off and hit him in the eye he has tried to remove it with a cotton swab but is unable to. Patient says he has right ingrown toenail has been fighting for about the last 2 months which is getting so bad and painful with the. He would have it checked out while he is here. Related Data Previous Rx's Medication Instructions Recorded FASTFORM ULNAR GUTTER SPLINT #1 ea 10/14/21 FAST FORM #1 ea 12/12/21 amoxicillin 875 mg-potassium 1 tab PO BID #14 tabs 09/24/22 clavulanate 125 mg tablet hydrocodone 5 mg-acetaminophen 325 1 tab PO Q6H PRN pain #14 tabs 03/17/23 mg tablet sulfamethoxazole 800 1 tab PO BID #14 tabs 10/23/23 mg-trimethoprim 160 mg tablet (Bactrim DS) Allergies Allergy/AdvReac Type Severity Reaction Status Date / Time No Known Allergies Allergy Verified 03/17/23 15:33 Review of Systems General: Reports: 10 or more systems reviewed and unremarkable except in HPI and below PFSH ED PFSH: Medical History No pertinent family history Closed dislocation of fourth carpometacarpal joint Fx hamate bone-closed Closed fracture of 5th metacarpal Closed fracture of 4th metacarpal No pertinent past medical history Social History Smoking and tobacco/nicotine status: current every day tobacco/nicotine user smokeless tobacco Physical Exam Const: COMMON NORMALS: no acute distress, average body habitus, patient oriented x3, no limitations, healthy appearing, alert and well nourished HENMT: COMMON NORMALS: normocephalic, atraumatic, hearing grossly normal bilaterally, external ears normal, Normal external nose present and moist oral mucous membranes HEAD & SCALP: normocephalic and atraumatic NOSE: Normal external nose present EXTERNAL EAR: Yes external ears normal Eye: COMMON NORMALS: Equal, round and reactive pupils present, EOMs intact bilaterally, conjunctivae normal and no scleral icterus CONJUNCTIVA: Yes conjunctivae normal PUPIL: Yes Equal, round and reactive pupils present Neck/C-Spine: COMMON NORMALS: no JVD Chest: COMMONS NORMALS: normal inspection of the chest and normal palpation of entire chest wall Resp: COMMON NORMALS: normal respiratory effort, No retractions, No use of accessory muscles and clear to auscultation bilaterally AUSCULTATION: clear to auscultation bilaterally Cardio: COMMON NORMALS: no JVD, regular rate, regular rhythm, S1 normal heart sound present, S2 normal heart sound present, No gallops present (Cardio), No clicks present (Cardio), No murmurs present (Cardio) and No rub (Cardio) RATE: regular rate RHYTHM: regular rhythm HEART SOUNDS: S1 normal heart sound present and S2 normal heart sound present GI: COMMON NORMALS: Normal to inspection, nondistended, normoactive bowel sounds present, Soft to palpation, non-tender, No hepatosplenomegaly present and no masses PALPATION: Yes Soft to palpation and Yes No hepatosplenomegaly present Extremity: NARRATIVE EXTREMITY EXAM: Ingrown toenail on right great toe, red erythematous painful to palpation Neuro: COMMON NORMALS: patient oriented x3 SENSORIUM/ORIENTATION: Yes alert Course Vital Signs: Vital signs: Vital Signs Temperature 97.9 F 10/23/23 18:45 Pulse Rate 71 10/23/23 19:22 Respiratory Rate 16 10/23/23 18:45 Blood Pressure 122/61 10/23/23 19:22 Pulse Oximetry 99 10/23/23 19:22 Oxygen Delivery Me thod Room Air 10/23/23 18:45 MDM - Eye Problem Medical Decision Making Right eye was anesthetized with tetracaine fluorescein no obvious deformity was noted. There is a minor possible foreign body in the medial portion of the globe this was gently abraded with an 18-gauge needle and it did dissipate. Then attention was turned to patient's toenail. Patient's toenail was loose and thickened he was able to lift it up I clipped the ingrown lateral side of the nail with no complications. Medical Records I reviewed the patient's medical records. Lab Data I reviewed the patient's lab results. No radiology studies performed this visit Discharge Plan Discharge Patient Disposition: Home Clinical Impression: Ingrowing toenail of right foot, Foreign body in eye Condition: Stable Prescriptions: New sulfamethoxazole-trimethoprim [Bactrim DS] 800-160 mg tablet 1 tab PO BID Qty: 14 0RF No Action (DME) FASTFORM ULNAR GUTTER SPLINT See Rx Instructions .Route .MEDSUPPLY Qty: 1 0RF Rx Instructions: As directed (DME) FAST FORM See Rx Instructions .Route .MEDSUPPLY Qty: 1 0RF Rx Instructions: As directed amoxicillin-pot clavulanate 875-125 mg tablet 1 tab PO BID Qty: 14 0RF hydrocodone-acetaminophen 5-325 mg tablet 1 tab PO Q6H PRN (Reason: pain) Qty: 14 0RF Discharge Orders: Discharge ED (Routine); Ordered 10/23/23 Ordered By: Ciaran Estrada Referrals: Marcelino Shields MD [Primary Care Provider] - 1 week Patient Instructions: Eye Foreign Body (ED), Partial Nail Avulsion for Ingrown Nail (DC) Activity Restrictions/Additional Instructions: Please use antibiotic eyedrops 1 drop 4 times a day until gone. Please soak right great toe in warm salt water for 10 minutes twice a day, please take all antibiotics as directed, please keep wound clean and dry and bandaged as appropriate. Coding Level of Care Code ED Director Of Product Management for Puma Handley
[2023-10-23] MEDS: fluorescein 1 mg Strip EYE-RIGHT (20:17)
[2023-10-23] MEDS: tetracaine 0.5% Op Soln 4 mL Btl 1 DROP EYE-RIGHT (20:17)
[2023-10-23] MEDS: gentamicin 0.3% Op Soln 5 mL Btl 1 DROP EYE-RIGHT (20:59)
[2023-10-23] MEDS: bacitracin ointment Pkt 1 EACH TOPICAL (20:59)
[2023-10-23] MEDS: sulfamethoxazole-trimeth DS 160-800 mg Tablet 1 TAB PO (20:59)
[2023-10-23 21:02] VITALS: BP 130/67; PULSE 67; RESP 16; O2SAT 99
== END 2023-10-23 21:03 | disposition home or self-care (01) ==
PROVIDERS: Emergency Provider Emergency Medicine; PCP Family Medicine
DX: L60.0 Ingrowing nail (principal); T15.91XA Foreign body on external eye, part unspecified, right eye, initial encounter; F17.220 Nicotine dependence, chewing tobacco, uncomplicated; W44.D0XA Magnetic metal object unspecified, entering into or through a natural orifice, initial encounter
CPT/HCPCS: 99283